=== PATIENT | female | born 1980 | race Caucasian/White ===

== ENCOUNTER 2017-03-03 12:13 | Inpatient (IN) | payer OTHER ==
[2017-03-03 13:22] VITALS: BMI 14.3
--- NOTE | 2017-03-03 13:43 | HP ---
Admission [facility] Chief Complaint: i need help to stay in rehab for heroin dependence,and cocaine dependence,mmtp Allergies/Adverse Reactions: Allergies Allergy/AdvReac Type Severity Reaction Status Date / Time No Known Allergies Allergy Verified 03/03/17 13:27 History of Present Illness: this 36 years old female with heroin and cocaine dependence,mmtp 120 mgs/day for rehab last treatment in 2011 [facility] multiple medical problem hepatitis c,depression,nicotine dependence,weight loss last methadone medicated today depression - Ebola screening Have you traveled outside of the country in the last 21 days: No Have you had contact with anyone from an Ebola affected area: No Have you been sick,other than usual withdrawal symptoms: No Do you have a fever: No - Review of Systems Constitutional: No Symptoms Reported, Loss of Appetite, Malaise, Changes in sleep, Weakness, Unexplained wgt Loss EENT: reports: No Symptoms Reported Respiratory: reports: No Symptoms reported Cardiac: reports: No Symptoms Reported GI: reports: No Symptoms Reported : reports: No Symptoms Reported Musculoskeletal: reports: No Symptoms Reported Integumentary: reports: No Symptoms Reported Neuro: reports: No Symptoms reported Endocrine: reports: No Symptoms Reported Hematology: reports: No Symptoms Reported Psychiatric: reports: Depressed Patient History - Patient Medical History Hx Anemia: No Hx Asthma: No Hx Chronic Obstructive Pulmonary Disease (COPD): No Hx Cancer: No Hx Cardiac Disorders: No Hx Congestive Heart Failure: No Hx Hypertension: No Hx Hypercholesterolemia: No Hx Pacemaker: No HX Cerebrovascular Accident: No Hx Seizures: No Hx Dementia: No Hx Diabetes: No Hx Gastrointestinal Disorders: No Hx Liver Disease: Yes (hepatitis c) Hx Genitourinary Disorders: No Hx Sexually Transmitted Disorders: No Hx Renal Disease (ESRD): No Hx Thyroid Disease: No Hx Human Immunodeficiency Virus (HIV): No (02/28/17 last negative) Hx Hepatitis C: Yes Hx Depression: Yes Hx Suicide Attempt: No Hx Bipolar Disorder: No Hx Schizophrenia: No Other Medical History: no suicidal,no homicidal - Patient Surgical History Past Surgical History: No - PPD History Previous Implant?: Yes Documented Results: Negative w/o proof Implanted On Prior [facility] Admission?: No PPD to be Administered?: Yes - Reproductive History Patient is a Female of Child Bearing Age (11 -55 yrs old): Yes Patient : No - Smoking Cessation Smoking history: Current every day smoker Have you smoked in the past 12 months: Yes Aproximately how many cigarettes per day: 20 Cigars Per Day: 0 Hx Chewing Tobacco Use: No Initiated information on smoking cessation: Yes 'Breaking Loose' booklet given: 03/03/17 - Substance & Tx. History Hx Alcohol Use: No Hx Substance Use: Yes Substance Use Type: Cocaine, Heroin Hx Substance Use Treatment: Yes (2011 [facility]) - Substances Abused Heroin Route: Injection Frequency: Daily Amount used: 2-3 bags Age of first use: 31 Date of Last Use: 03/03/17 Cocaine Route: Injection Frequency: Daily Amount used: 4 bags Age of first use: 31 Date of Last Use: 03/03/17 Family Disease History - Family Disease History Family Disease History: Other: Father (alcohol ), Mother (alcohol ) Admission Physical Exam [facility] - Vital Signs Vital Signs: Vital Signs - 24 hr 03/03/17 13:19 Temperature 96.4 F L Pulse Rate 71 Respiratory 19 Rate Blood Pressure 109/76 - Physical General Appearance: Yes: Within Normal Limits, Other (cachexia) HEENTM: Yes: Hearing grossly Normal, Normal ENT Inspection, ANIYA Respiratory: Yes: Lungs Clear, Normal Breath Sounds, No Respiratory Distress Neck: Yes: Within Normal Limits Breast: Yes: Breast Exam Deferred Cardiology: Yes: Within Normal Limits, Regular Rhythm, Regular Rate, S1, S2 Abdominal: Yes: Within Normal Limits, Normal Bowel Sounds, Non Tender, Flat, Soft Genitourinary: Yes: Within Normal Limits Back: Yes: Within Normal Limits Musculoskeletal: Yes: Within Normal Limits Extremities: Yes: Within Normal Limits Neurological: Yes: mechanical estimator II-XII NML intact, Fully Oriented, Alert, Motor Strength 5/5 Integumentary: Yes: Within Normal Limits Lymphatic: Yes: Within Normal Limits - Diagnostic (1) Opioid dependence Current Visit: Yes Status: Acute (2) Cocaine dependence Current Visit: Yes Status: Acute (3) Methadone maintenance therapy patient Current Visit: Yes Status: Acute (4) Hepatitis C Current Visit: Yes Status: Acute (5) Nicotine dependence Current Visit: Yes Status: Acute (6) Weight loss Current Visit: Yes Status: Acute (7) Depression Current Visit: Yes Status: Acute Cleared for Admission [facility] - Detox or Rehab Claeared for Rehab Admission: Yes [facility] Breath Alcohol Content Breath Alcohol Content: 0 Urine Pregancy Test - Result Urine Test Results: Negative- NO Line Present Urine Drug Screen - Results Drug Screen Negative: No Urine Drug Screen Results: OSMIN-Cocaine, OPI-Opiates, MTD-Methadone
[2017-03-03] MEDS ORDERED: guaiFENesin/D-METHORPHAN HB 10 ML UNIT-DOSE CUPS PO PRN (13:56)
[2017-03-03] MEDS ORDERED: P-EPHED 60MG/TRIPROLIDI 2.5MG TABLET PO PRN (13:56)
[2017-03-03] MEDS ORDERED: MAGNESIUM CITRATE 300 ML BOTTLE PO PRN (13:56)
[2017-03-03] MEDS ORDERED: MAG HYDROX/AL HYDROX/SIMETH 30 ML UNIT-DOSE CUP PO PRN (13:56)
[2017-03-03] MEDS ORDERED: MENTHOL/PHENOL 1 EACH UD MM PRN (13:56)
[2017-03-03] MEDS ORDERED: NICOTINE POLACRILEX 2 MG GUM BUC PRN (13:56)
[2017-03-03] MEDS ORDERED: MAGNESIUM HYDROX 2400MG/30ML ORAL SUSPENSION 30 ML CUP PO PRN (13:56)
[2017-03-03] MEDS ORDERED: ACETAMINOPHEN 325 MG TABLET (FP) PO PRN (13:56)
[2017-03-03] MEDS ORDERED: hydrOXYzine PAMOATE 25 MG CAPSULE (FP) PO PRN (13:56)
[2017-03-03] MEDS ORDERED: IBUPROFEN 400 MG TABLET (FP) PO PRN (13:56)
[2017-03-03 16:56] LABS: MCH 32.1 pg (25.7-33.7); MCHC 33.2 g/dl (32.0-36.0); MEAN CELL VOLUME 96.8 fl (80-96); MEAN PLT VOLUME 10.3 fl (7.5-11.1); PLATELET COUNT 220 K/MM3 (134-434); RDW 14.2 % (11.6-15.6); WHITE BLOOD COUNT 6.3 K/mm3 (4.0-10.0)
[2017-03-03 17:21] LABS: ALBUMIN 3.8 g/dl (3.4-5.0); ANION GAP 7 (8-16); BILIRUBIN,TOTAL 0.3 mg/dL (0.2-1.0); CALCIUM 9.4 mg/dL (8.5-10.1); CO2 31 mmol/L (21-32); CREATININE 0.9 mg/dL (0.55-1.02); SGOT/AST 14 U/L (15-37); SGPT/ALT 37 U/L (12-78); TOT PROT 7.5 g/dl (6.4-8.2)
[2017-03-03 17:22] LABS: ALK PHOS 155 U/L (45-117)
[2017-03-03 17:35] LABS: GLUCOSE,RANDOM 606 mg/dL (74-106)
[2017-03-03] MEDS ORDERED: INSULIN (NOVOLOG) ASPART 100 UNITS/ML 10ML VIAL SQ ONE (18:18)
[2017-03-03] MEDS: NICOTINE 21 MG/24 HOURS TOPICAL PATCH TD SCH (18:42)
[2017-03-03] MEDS: CYPROHEPTADINE HCL 4 MG TABLET PO SCH (18:42)
[2017-03-03] MEDS: LOPERAMIDE HCL 2 MG CAPSULE PO PRN (18:59)
[2017-03-03] MEDS: THIAMINE HCL 100 MG TABLET (FP) PO SCH (21:59)
[2017-03-03] MEDS: INSULIN SLIDING SCALE (NOVOLOG) 1 VIAL SQ SCH (22:00)
[2017-03-03] MEDS: diphenhydrAMINE HCL 50 MG CAPSULE PO PRN (22:00)
[2017-03-03 22:03] LABS: URINE APPEARANCE CLEAR; URINE BILIRUBIN NEGATIVE (NEGATIVE); URINE BLOOD NEGATIVE (NEGATIVE); URINE COLOR STRAW; URINE GLUCOSE (UA) 3+ (NEGATIVE); URINE KETONE NEGATIVE (NEGATIVE); URINE LEUK ESTERASE NEGATIVE (NEGATIVE); URINE NITRITE NEGATIVE (NEGATIVE); URINE PROTEIN NEGATIVE (NEGATIVE); URINE UROBILINOGEN NEGATIVE mg/dL (0.2-1.0)
[2017-03-03] MEDS: INSULIN DETEMIR 100 UNITS/ML MDV SQ SCH (22:04)
[2017-03-04] MEDS: CYPROHEPTADINE HCL 4 MG TABLET PO SCH ×3 (07:00→17:38)
[2017-03-04] MEDS: LOPERAMIDE HCL 2 MG CAPSULE PO PRN ×2 (07:00→17:40)
[2017-03-04] MEDS: INSULIN SLIDING SCALE (NOVOLOG) 1 VIAL SQ SCH ×4 (07:01→21:40)
[2017-03-04] MEDS: METHADONE HCL 40 MG DISPERSABLE TABLET PO SCH (08:02)
[2017-03-04] MEDS: PRENATAL VITAMINS W/ FOLIC ACID TABLET (FP) PO SCH (10:12)
[2017-03-04] MEDS: NICOTINE 21 MG/24 HOURS TOPICAL PATCH TD SCH (10:12)
[2017-03-04] MEDS: THIAMINE HCL 100 MG TABLET (FP) PO SCH (21:38)
[2017-03-04] MEDS: INSULIN DETEMIR 100 UNITS/ML MDV SQ SCH (22:15)
[2017-03-05] MEDS: METHADONE HCL 40 MG DISPERSABLE TABLET PO SCH (06:37)
[2017-03-05] MEDS: CYPROHEPTADINE HCL 4 MG TABLET PO SCH ×3 (06:38→17:22)
[2017-03-05] MEDS: LOPERAMIDE HCL 2 MG CAPSULE PO PRN ×2 (06:39→17:23)
[2017-03-05] MEDS: INSULIN SLIDING SCALE (NOVOLOG) 1 VIAL SQ SCH ×4 (06:40→21:35)
--- NOTE | 2017-03-05 08:09 | EKG ---
Test Reason : Blood Pressure : / mmHG Vent. Rate : 058 BPM Atrial Rate : 058 BPM P-R Int : 136 ms QRS Dur : 090 ms QT Int : 462 ms P-R-T Axes : 053 082 080 degrees QTc Int : 453 ms SINUS BRADYCARDIA WITH SINUS ARRHYTHMIA ANTERIOR INFARCT , AGE UNDETERMINED ABNORMAL ECG NO PREVIOUS ECGS AVAILABLE Confirmed by JULY KELLY MD ([id number]) on 03/05/2017 8:09:23 AM Referred By: Confirmed By:JULY KELLY MD
[2017-03-05] MEDS: NICOTINE 21 MG/24 HOURS TOPICAL PATCH TD SCH (09:59)
[2017-03-05] MEDS: PRENATAL VITAMINS W/ FOLIC ACID TABLET (FP) PO SCH (10:00)
[2017-03-05] MEDS ORDERED: INSULIN (NOVOLOG) ASPART 100 UNITS/ML 10ML VIAL ONE (12:14)
[2017-03-05] MEDS: THIAMINE HCL 100 MG TABLET (FP) PO SCH (21:34)
[2017-03-05] MEDS: INSULIN DETEMIR 100 UNITS/ML MDV SQ SCH (21:36)
[2017-03-06] MEDS: METHADONE HCL 40 MG DISPERSABLE TABLET PO SCH (06:26)
[2017-03-06] MEDS: CYPROHEPTADINE HCL 4 MG TABLET PO SCH ×3 (06:26→17:05)
[2017-03-06] MEDS ORDERED: INSULIN (NOVOLOG) ASPART 100 UNITS/ML 10ML VIAL ONE ×2 (06:29→11:48)
[2017-03-06] MEDS: INSULIN SLIDING SCALE (NOVOLOG) 1 VIAL SQ SCH ×4 (08:02→22:00)
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
[2017-03-06] MEDS: NICOTINE 21 MG/24 HOURS TOPICAL PATCH TD SCH (09:52)
[2017-03-06] MEDS: PRENATAL VITAMINS W/ FOLIC ACID TABLET (FP) PO SCH (09:53)
[2017-03-06] MEDS: INSULIN DETEMIR 100 UNITS/ML MDV SQ SCH (21:59)
[2017-03-06] MEDS: THIAMINE HCL 100 MG TABLET (FP) PO SCH (22:00)
[2017-03-07] MEDS: CYPROHEPTADINE HCL 4 MG TABLET PO SCH ×3 (06:06→17:14)
[2017-03-07] MEDS: METHADONE HCL 40 MG DISPERSABLE TABLET PO SCH (06:07)
[2017-03-07] MEDS: INSULIN SLIDING SCALE (NOVOLOG) 1 VIAL SQ SCH ×4 (07:42→21:42)
[2017-03-07] MEDS ORDERED: INSULIN (NOVOLOG) ASPART 100 UNITS/ML 10ML VIAL ONE ×5 (07:44→21:43)
[2017-03-07] MEDS: NICOTINE 21 MG/24 HOURS TOPICAL PATCH TD SCH (09:53)
[2017-03-07] MEDS: PRENATAL VITAMINS W/ FOLIC ACID TABLET (FP) PO SCH (09:54)
[2017-03-07] MEDS: LOPERAMIDE HCL 2 MG CAPSULE PO PRN (17:17)
[2017-03-07] MEDS: diphenhydrAMINE HCL 50 MG CAPSULE PO PRN (21:38)
[2017-03-07] MEDS: THIAMINE HCL 100 MG TABLET (FP) PO SCH (21:39)
[2017-03-07] MEDS: INSULIN DETEMIR 100 UNITS/ML MDV SQ SCH (21:42)
[2017-03-08] MEDS: CYPROHEPTADINE HCL 4 MG TABLET PO SCH ×3 (06:11→17:13)
[2017-03-08] MEDS: METHADONE HCL 40 MG DISPERSABLE TABLET PO SCH (06:12)
[2017-03-08] MEDS: INSULIN SLIDING SCALE (NOVOLOG) 1 VIAL SQ SCH ×4 (06:15→21:39)
[2017-03-08] MEDS: PRENATAL VITAMINS W/ FOLIC ACID TABLET (FP) PO SCH (10:21)
[2017-03-08] MEDS: NICOTINE 21 MG/24 HOURS TOPICAL PATCH TD SCH (10:21)
[2017-03-08] MEDS ORDERED: INSULIN (NOVOLOG) ASPART 100 UNITS/ML 10ML VIAL ONE (11:49)
[2017-03-08] MEDS: LOPERAMIDE HCL 2 MG CAPSULE PO PRN (17:16)
[2017-03-08] MEDS: INSULIN DETEMIR 100 UNITS/ML MDV SQ SCH (21:38)
[2017-03-08] MEDS: THIAMINE HCL 100 MG TABLET (FP) PO SCH (21:39)
[2017-03-08] MEDS: diphenhydrAMINE HCL 50 MG CAPSULE PO PRN (21:40)
[2017-03-09] MEDS: CYPROHEPTADINE HCL 4 MG TABLET PO SCH ×3 (06:06→17:08)
[2017-03-09] MEDS: METHADONE HCL 40 MG DISPERSABLE TABLET PO SCH (06:06)
[2017-03-09] MEDS: INSULIN SLIDING SCALE (NOVOLOG) 1 VIAL SQ SCH ×4 (07:20→21:35)
[2017-03-09] MEDS: NICOTINE 21 MG/24 HOURS TOPICAL PATCH TD SCH (10:26)
[2017-03-09] MEDS: PRENATAL VITAMINS W/ FOLIC ACID TABLET (FP) PO SCH (10:26)
[2017-03-09] MEDS ORDERED: INSULIN (NOVOLOG) ASPART 100 UNITS/ML 10ML VIAL ONE (11:57)
[2017-03-09] MEDS: THIAMINE HCL 100 MG TABLET (FP) PO SCH (21:35)
[2017-03-09] MEDS: INSULIN DETEMIR 100 UNITS/ML MDV SQ SCH (21:35)
[2017-03-10] MEDS: METHADONE HCL 40 MG DISPERSABLE TABLET PO SCH (06:05)
[2017-03-10] MEDS: CYPROHEPTADINE HCL 4 MG TABLET PO SCH ×3 (06:05→17:16)
[2017-03-10] MEDS ORDERED: INSULIN (NOVOLOG) ASPART 100 UNITS/ML 10ML VIAL ONE ×2 (06:56→11:49)
[2017-03-10] MEDS: INSULIN SLIDING SCALE (NOVOLOG) 1 VIAL SQ SCH ×4 (07:57→21:44)
[2017-03-10] MEDS: NICOTINE 21 MG/24 HOURS TOPICAL PATCH TD SCH (10:30)
[2017-03-10] MEDS: PRENATAL VITAMINS W/ FOLIC ACID TABLET (FP) PO SCH (10:30)
--- NOTE | 2017-03-10 14:54 | PN ---
Psychiatric Progress Note Vital Signs: Vital Signs Period Temp Pulse Resp BP Sys/Jeronimo Pulse Ox Last 24 Hr 98.4 F 111 17-18 126/79 Date of Session: 03/10/17 Chief Complaint:: Sleep is the big problems still as well as mood instability. HPI: Patient addressed Opioid dependence (MMTP maintanance),Cocoaine dependence comorbid with substance induced mood disorder. ROS: IDDM,hep C. Current Medications: Active Medications Generic Name Dose Route Start Last Admin Trade Name Freq PRN Reason Stop Dose Admin Acetaminophen 650 mg 03/03/17 13:56 Tylenol - PO Q4H PRN PAIN Al Hydroxide/Mg Hydroxide 30 ml 03/03/17 13:56 Mylanta Oral Suspension - PO Q6H PRN DYSPEPSIA Cyproheptadine HCl 4 mg 03/03/17 16:30 03/10/17 10:31 Periactin - PO 4 mg TIDAC MARVIN Administration Diphenhydramine HCl 50 mg 03/03/17 13:56 03/08/17 21:40 Benadryl - PO 50 mg HSMR1 PRN Administration INSOMNIA Eucalyptus/Menthol/Phenol/Sorbitol 1 each 03/03/17 13:56 Cepastat Lozenge - MM Q4H PRN SORE THROAT Guaifenesin 10 ml 03/03/17 13:56 Robitussin Dm - PO Q6H PRN COUGH Hydroxyzine Pamoate 25 mg 03/03/17 13:56 Vistaril - PO Q4H PRN AGITATION Ibuprofen 400 mg 03/03/17 13:56 Motrin - PO Q6H PRN SEVERE PAIN Insulin Aspart 1 vial 03/03/17 22:00 03/10/17 11:46 Novolog Vial Sliding Scale - SQ 10 unit ACHS MARVIN Administration Protocol Insulin Detemir 20 units 03/10/17 14:37 Levemir Vial SQ HS MARVIN Loperamide HCl 4 mg 03/03/17 13:56 03/08/17 17:16 Imodium - PO 4 mg Q6H PRN Administration DIARRHEA Magnesium Citrate 300 ml 03/03/17 13:56 Citroma - PO Q48H PRN CONSTIPATION Magnesium Hydroxide 30 ml 03/03/17 13:56 Milk Of Magnesia - PO DAILY PRN CONSTIPATION Methadone HCl 120 mg 03/11/17 06:00 Dolophine - PO 03/17/17 05:59 DAILY@0600 MARVIN Nicotine 21 mg 03/03/17 14:36 03/10/17 10:30 Nicoderm Patch - TD 21 mg DAILY MARVIN Administration Nicotine Polacrilex 2 mg 03/03/17 13:56 Nicorette Gum - BUC Q2H PRN NICOTINE REPLACEMENT RX Multivit/Folic Acid/Iron 1 tab 03/04/17 10:00 03/10/17 10:30 Vitamins ([facility]) - PO 1 tab DAILY MARVIN Administration Pseudoephedrine/Triprolidine 1 combo 03/03/17 13:56 Actifed - PO TID PRN NASAL CONGESTION Quetiapine Fumarate 50 mg 03/10/17 22:00 Seroquel - PO HS MARVIN Thiamine HCl 100 mg 03/03/17 22:00 03/09/17 21:35 Vitamin B1 - PO Not Given HS MARVIN Current Side Effect: No Lab tests ordered: No Lab tests reviewed: Yes Provider note:: Chart was revuewed ,patient was seen in my office to address her ongoing sleeping difficulties(inability to fallasleep and interrupted sleep pattern).Properties of seroquel has been discussed with the patient including side effects,benefits and dose adjustment).Seroquel 50 mg po hs will be started tonight. Supportive therapy provided along with psychoeducation. Total face to face time:: 25 Mental Status Exam - Mental Status Exam Alert and Oriented to: Time, Place, Person Cognitive Function: Grossly Intact Patient Appearance: Well Groomed Mood: Anxious Affect: Mood Congruent, Labile Patient Behavior: Cooperative Speech Pattern: Clear Voice Loudness: Normal Thought Process: Goal Oriented Thought Disorder: Not Present Hallucinations: Denies Suicidal Ideation: Denies Homicidal Ideation: Denies Insight/Judgement: Fair Sleep: Difficulty falling asleep Appetite: Fair Muscle strength/Tone: Normal Gait/Station: Normal Psychiatric Treatment Plan - Problem List (1) Cocaine dependence Current Visit: Yes (2) Hepatitis C Current Visit: Yes (3) IDDM (insulin dependent diabetes mellitus) Current Visit: Yes (4) Methadone maintenance therapy patient Current Visit: Yes (5) Nicotine dependence Current Visit: Yes (6) Opioid dependence Current Visit: Yes
[2017-03-10] MEDS: THIAMINE HCL 100 MG TABLET (FP) PO SCH (21:43)
[2017-03-10] MEDS: INSULIN DETEMIR 100 UNITS/ML MDV SQ SCH (21:46)
[2017-03-10] MEDS: QUEtiapine FUMARATE 50 MG TABLET PO SCH (21:47)
[2017-03-11] MEDS: CYPROHEPTADINE HCL 4 MG TABLET PO SCH ×3 (06:16→16:27)
[2017-03-11] MEDS: INSULIN SLIDING SCALE (NOVOLOG) 1 VIAL SQ SCH ×4 (06:16→21:34)
[2017-03-11] MEDS: METHADONE HCL 40 MG DISPERSABLE TABLET PO SCH (06:17)
[2017-03-11] MEDS: NICOTINE 21 MG/24 HOURS TOPICAL PATCH TD SCH (09:37)
[2017-03-11] MEDS: PRENATAL VITAMINS W/ FOLIC ACID TABLET (FP) PO SCH (09:37)
[2017-03-11] MEDS ORDERED: INSULIN (NOVOLOG) ASPART 100 UNITS/ML 10ML VIAL ONE ×3 (11:47→21:36)
[2017-03-11] MEDS: INSULIN DETEMIR 100 UNITS/ML MDV SQ SCH (21:32)
[2017-03-11] MEDS: QUEtiapine FUMARATE 50 MG TABLET PO SCH (21:33)
[2017-03-11] MEDS: THIAMINE HCL 100 MG TABLET (FP) PO SCH (21:33)
[2017-03-12] MEDS: CYPROHEPTADINE HCL 4 MG TABLET PO SCH ×3 (06:25→16:56)
[2017-03-12] MEDS: METHADONE HCL 40 MG DISPERSABLE TABLET PO SCH (06:25)
[2017-03-12] MEDS: INSULIN SLIDING SCALE (NOVOLOG) 1 VIAL SQ SCH ×4 (06:26→23:13)
[2017-03-12] MEDS: PRENATAL VITAMINS W/ FOLIC ACID TABLET (FP) PO SCH (09:02)
[2017-03-12] MEDS: NICOTINE 21 MG/24 HOURS TOPICAL PATCH TD SCH (09:02)
[2017-03-12] MEDS ORDERED: PT OWN MED DRAWER 7, Y5N ONE (09:55)
[2017-03-12] MEDS ORDERED: INSULIN (NOVOLOG) ASPART 100 UNITS/ML 10ML VIAL ONE ×3 (12:02→22:09)
[2017-03-12] MEDS: THIAMINE HCL 100 MG TABLET (FP) PO SCH (21:43)
[2017-03-12] MEDS: QUEtiapine FUMARATE 50 MG TABLET PO SCH (21:44)
[2017-03-12] MEDS: LOPERAMIDE HCL 2 MG CAPSULE PO PRN (23:12)
[2017-03-12] MEDS: INSULIN DETEMIR 100 UNITS/ML MDV SQ SCH (23:13)
[2017-03-13] MEDS: METHADONE HCL 40 MG DISPERSABLE TABLET PO SCH (06:20)
[2017-03-13] MEDS: CYPROHEPTADINE HCL 4 MG TABLET PO SCH ×3 (06:21→17:25)
[2017-03-13] MEDS: INSULIN SLIDING SCALE (NOVOLOG) 1 VIAL SQ SCH ×4 (06:37→21:44)
[2017-03-13] MEDS: DIPHENOXYLATE 2.5/ATROPINE.025 1 COMBO TABLET PO PRN (07:55)
[2017-03-13] MEDS: PRENATAL VITAMINS W/ FOLIC ACID TABLET (FP) PO SCH (10:28)
[2017-03-13] MEDS: NICOTINE 21 MG/24 HOURS TOPICAL PATCH TD SCH (10:29)
[2017-03-13] MEDS ORDERED: INSULIN (NOVOLOG) ASPART 100 UNITS/ML 10ML VIAL ONE (11:55)
[2017-03-13] MEDS ORDERED: QUEtiapine FUMARATE 25 MG TABLET (FP) ONE (19:48)
[2017-03-13] MEDS: INSULIN DETEMIR 100 UNITS/ML MDV SQ SCH (21:44)
[2017-03-13] MEDS: THIAMINE HCL 100 MG TABLET (FP) PO SCH (21:46)
[2017-03-13] MEDS: QUEtiapine FUMARATE 50 MG TABLET PO SCH (21:46)
[2017-03-14] MEDS: DIPHENOXYLATE 2.5/ATROPINE.025 1 COMBO TABLET PO PRN (06:19)
[2017-03-14] MEDS: METHADONE HCL 40 MG DISPERSABLE TABLET PO SCH (06:19)
[2017-03-14] MEDS: CYPROHEPTADINE HCL 4 MG TABLET PO SCH ×3 (06:19→17:20)
[2017-03-14] MEDS: INSULIN SLIDING SCALE (NOVOLOG) 1 VIAL SQ SCH ×4 (08:09→21:50)
[2017-03-14] MEDS ORDERED: INSULIN (NOVOLOG) ASPART 100 UNITS/ML 10ML VIAL ONE ×2 (08:11→11:57)
[2017-03-14] MEDS: NICOTINE 21 MG/24 HOURS TOPICAL PATCH TD SCH (10:19)
[2017-03-14] MEDS: PRENATAL VITAMINS W/ FOLIC ACID TABLET (FP) PO SCH (10:19)
[2017-03-14] MEDS ORDERED: PT OWN MED DRAWER 7, Y5N ONE (11:57)
[2017-03-14] MEDS: QUEtiapine FUMARATE 50 MG TABLET PO SCH (21:47)
[2017-03-14] MEDS: THIAMINE HCL 100 MG TABLET (FP) PO SCH (21:47)
[2017-03-14] MEDS ORDERED: INSULIN DETEMIR 100 UNITS/ML MDV SQ SCH (22:00)
[2017-03-15] MEDS: METHADONE HCL 40 MG DISPERSABLE TABLET PO SCH (06:09)
[2017-03-15] MEDS: INSULIN SLIDING SCALE (NOVOLOG) 1 VIAL SQ SCH ×4 (06:10→21:47)
[2017-03-15] MEDS: CYPROHEPTADINE HCL 4 MG TABLET PO SCH ×3 (06:10→17:18)
[2017-03-15] MEDS: INSULIN DETEMIR 100 UNITS/ML MDV SQ SCH ×2 (07:15→17:19)
[2017-03-15] MEDS: NICOTINE 21 MG/24 HOURS TOPICAL PATCH TD SCH (10:06)
[2017-03-15] MEDS: PRENATAL VITAMINS W/ FOLIC ACID TABLET (FP) PO SCH (10:07)
[2017-03-15] MEDS: DIPHENOXYLATE 2.5/ATROPINE.025 1 COMBO TABLET PO PRN ×2 (10:07→17:21)
[2017-03-15] MEDS ORDERED: PT OWN MED DRAWER 7, Y5N ONE (10:27)
[2017-03-15] MEDS ORDERED: INSULIN (NOVOLOG) ASPART 100 UNITS/ML 10ML VIAL ONE (11:50)
[2017-03-15] MEDS: QUEtiapine FUMARATE 50 MG TABLET PO SCH (21:46)
[2017-03-15] MEDS: THIAMINE HCL 100 MG TABLET (FP) PO SCH (21:46)
[2017-03-16] MEDS: CYPROHEPTADINE HCL 4 MG TABLET PO SCH ×3 (06:06→17:19)
[2017-03-16] MEDS: METHADONE HCL 40 MG DISPERSABLE TABLET PO SCH (06:06)
[2017-03-16] MEDS: INSULIN SLIDING SCALE (NOVOLOG) 1 VIAL SQ SCH ×4 (06:07→21:45)
[2017-03-16] MEDS: INSULIN DETEMIR 100 UNITS/ML MDV SQ SCH ×2 (07:22→17:18)
[2017-03-16] MEDS: NICOTINE 21 MG/24 HOURS TOPICAL PATCH TD SCH (09:56)
[2017-03-16] MEDS: PRENATAL VITAMINS W/ FOLIC ACID TABLET (FP) PO SCH (09:56)
[2017-03-16] MEDS ORDERED: INSULIN (NOVOLOG) ASPART 100 UNITS/ML 10ML VIAL ONE ×2 (10:16→11:50)
[2017-03-16] MEDS ORDERED: PT OWN MED DRAWER 7, Y5N ONE (10:17)
[2017-03-16] MEDS ORDERED: LOPERAMIDE HCL 1 MG/5 ML UNIT DOSE CUP PO ONE (19:12)
[2017-03-16] MEDS ORDERED: LOPERAMIDE HCL 2 MG CAPSULE PO ONE (19:15)
[2017-03-16] MEDS: THIAMINE HCL 100 MG TABLET (FP) PO SCH (21:46)
[2017-03-16] MEDS: QUEtiapine FUMARATE 50 MG TABLET PO SCH (21:46)
[2017-03-17] MEDS: METHADONE HCL 40 MG DISPERSABLE TABLET PO SCH (06:04)
[2017-03-17] MEDS: CYPROHEPTADINE HCL 4 MG TABLET PO SCH ×3 (07:50→16:47)
[2017-03-17] MEDS: INSULIN SLIDING SCALE (NOVOLOG) 1 VIAL SQ SCH ×4 (07:52→22:28)
[2017-03-17] MEDS: INSULIN DETEMIR 100 UNITS/ML MDV SQ SCH ×2 (07:52→17:30)
[2017-03-17] MEDS ORDERED: INSULIN (NOVOLOG) ASPART 100 UNITS/ML 10ML VIAL ONE ×2 (07:54→17:45)
[2017-03-17] MEDS ORDERED: PT OWN MED DRAWER 7, Y5N ONE ×2 (07:55→10:28)
[2017-03-17] MEDS: NICOTINE 21 MG/24 HOURS TOPICAL PATCH TD SCH (10:11)
[2017-03-17] MEDS: PRENATAL VITAMINS W/ FOLIC ACID TABLET (FP) PO SCH (10:12)
[2017-03-17] MEDS: DIPHENOXYLATE 2.5/ATROPINE.025 1 COMBO TABLET PO PRN ×2 (16:48→22:00)
[2017-03-17] MEDS ORDERED: INSULIN DETEMIR 100 UNITS/ML MDV SQ ONE (17:45)
[2017-03-17] MEDS: QUEtiapine FUMARATE 50 MG TABLET PO SCH (21:59)
[2017-03-17] MEDS: THIAMINE HCL 100 MG TABLET (FP) PO SCH (21:59)
[2017-03-18] MEDS ORDERED: INSULIN DETEMIR 100 UNITS/ML MDV SQ ONE (05:50)
[2017-03-18] MEDS: CYPROHEPTADINE HCL 4 MG TABLET PO SCH ×3 (06:10→17:18)
[2017-03-18] MEDS: METHADONE HCL 40 MG DISPERSABLE TABLET PO SCH (06:10)
[2017-03-18] MEDS: INSULIN SLIDING SCALE (NOVOLOG) 1 VIAL SQ SCH ×4 (06:45→21:49)
[2017-03-18] MEDS: INSULIN DETEMIR 100 UNITS/ML MDV SQ SCH ×2 (07:59→17:16)
[2017-03-18] MEDS: PRENATAL VITAMINS W/ FOLIC ACID TABLET (FP) PO SCH (10:06)
[2017-03-18] MEDS: NICOTINE 21 MG/24 HOURS TOPICAL PATCH TD SCH (10:06)
[2017-03-18] MEDS: DIPHENOXYLATE 2.5/ATROPINE.025 1 COMBO TABLET PO PRN ×2 (10:08→17:20)
[2017-03-18] MEDS ORDERED: INSULIN (NOVOLOG) ASPART 100 UNITS/ML 10ML VIAL ONE (11:47)
[2017-03-18] MEDS: QUEtiapine FUMARATE 50 MG TABLET PO SCH (21:50)
[2017-03-18] MEDS: THIAMINE HCL 100 MG TABLET (FP) PO SCH (21:50)
[2017-03-19] MEDS ORDERED: INSULIN DETEMIR 100 UNITS/ML MDV SQ ONE (05:51)
[2017-03-19] MEDS: METHADONE HCL 40 MG DISPERSABLE TABLET PO SCH (06:12)
[2017-03-19] MEDS: CYPROHEPTADINE HCL 4 MG TABLET PO SCH ×3 (06:12→16:53)
[2017-03-19] MEDS: INSULIN SLIDING SCALE (NOVOLOG) 1 VIAL SQ SCH ×4 (06:57→22:06)
[2017-03-19] MEDS: INSULIN DETEMIR 100 UNITS/ML MDV SQ SCH ×2 (08:04→16:52)
[2017-03-19] MEDS: PRENATAL VITAMINS W/ FOLIC ACID TABLET (FP) PO SCH (10:07)
[2017-03-19] MEDS: NICOTINE 21 MG/24 HOURS TOPICAL PATCH TD SCH (10:07)
[2017-03-19] MEDS: DIPHENOXYLATE 2.5/ATROPINE.025 1 COMBO TABLET PO PRN (12:20)
[2017-03-19] MEDS ORDERED: INSULIN (NOVOLOG) ASPART 100 UNITS/ML 10ML VIAL ONE (12:24)
[2017-03-19] MEDS: THIAMINE HCL 100 MG TABLET (FP) PO SCH (22:05)
[2017-03-19] MEDS: QUEtiapine FUMARATE 50 MG TABLET PO SCH (22:05)
[2017-03-20] MEDS: METHADONE HCL 40 MG DISPERSABLE TABLET PO SCH (06:13)
[2017-03-20] MEDS: INSULIN SLIDING SCALE (NOVOLOG) 1 VIAL SQ SCH (06:14)
[2017-03-20] MEDS: CYPROHEPTADINE HCL 4 MG TABLET PO SCH (06:14)
[2017-03-20 07:05] VITALS: BP 105/73; PULSE 92; TEMP 98.3
[2017-03-20] MEDS: INSULIN DETEMIR 100 UNITS/ML MDV SQ SCH (08:35)
--- NOTE | 2017-03-20 09:27 | PN ---
Psychiatric Progress Note Vital Signs: Vital Signs Period Temp Pulse Resp BP Sys/Jeronimo Pulse Ox Last 24 Hr 98.3 F 92 16-18 105/73 Date of Session: 03/20/17 Chief Complaint:: Discharge visit HPI: Patient addressed Opioid and Cocaine dependence comorbid with Substance induced mood disorder. ROS: Significant for Hep,DM. Current Medications: Active Medications Generic Name Dose Route Start Last Admin Trade Name Freq PRN Reason Stop Dose Admin Acetaminophen 650 mg 03/03/17 13:56 Tylenol - PO Q4H PRN PAIN Al Hydroxide/Mg Hydroxide 30 ml 03/03/17 13:56 Mylanta Oral Suspension - PO Q6H PRN DYSPEPSIA Cyproheptadine HCl 4 mg 03/03/17 16:30 03/20/17 06:14 Periactin - PO 4 mg TIDAC MARVIN Administration Diphenhydramine HCl 50 mg 03/03/17 13:56 03/08/17 21:40 Benadryl - PO 50 mg HSMR1 PRN Administration INSOMNIA Diphenoxylate HCl/Atropine 1 combo 03/17/17 15:32 03/19/17 12:20 Lomotil - PO 03/20/17 15:31 1 combo Q4H PRN Administration DIARRHEA Eucalyptus/Menthol/Phenol/Sorbitol 1 each 03/03/17 13:56 Cepastat Lozenge - MM Q4H PRN SORE THROAT Guaifenesin 10 ml 03/03/17 13:56 Robitussin Dm - PO Q6H PRN COUGH Hydroxyzine Pamoate 25 mg 03/03/17 13:56 03/11/17 16:27 Vistaril - PO 25 mg Q4H PRN Administration AGITATION Ibuprofen 400 mg 03/03/17 13:56 Motrin - PO Q6H PRN SEVERE PAIN Insulin Aspart 1 vial 03/03/17 22:00 03/20/17 06:14 Novolog Vial Sliding Scale - SQ Not Given [facility] Protocol Insulin Detemir 20 units 03/15/17 00:58 03/20/17 08:35 Levemir Vial SQ 20 units BIDI MARVIN Administration Magnesium Citrate 300 ml 03/03/17 13:56 Citroma - PO Q48H PRN CONSTIPATION Magnesium Hydroxide 30 ml 03/03/17 13:56 Milk Of Magnesia - PO DAILY PRN CONSTIPATION Methadone HCl 120 mg 03/17/17 06:00 03/20/17 06:13 Dolophine - PO 120 mg DAILY@0600 MARVIN Administration Nicotine 21 mg 03/03/17 14:36 03/19/17 10:07 Nicoderm Patch - TD 21 mg DAILY MARVIN Administration Nicotine Polacrilex 2 mg 03/03/17 13:56 Nicorette Gum - BUC Q2H PRN NICOTINE REPLACEMENT RX Multivit/Folic Acid/Iron 1 tab 03/04/17 10:00 03/19/17 10:07 Vitamins ([facility]) - PO 1 tab DAILY MARVIN Administration Pseudoephedrine/Triprolidine 1 combo 03/03/17 13:56 Actifed - PO TID PRN NASAL CONGESTION Quetiapine Fumarate 50 mg 03/10/17 22:00 03/19/17 22:05 Seroquel - PO 50 mg HS MARVIN Administration Thiamine HCl 100 mg 03/03/17 22:00 03/19/17 22:05 Vitamin B1 - PO 100 mg HS MARVIN Administration Current Side Effect: No Lab tests ordered: No Lab tests reviewed: Yes Provider note:: Patient completed this program today.She has met her treatment goals and will continur to address [facility] [place].Patient reports finding Seroquel 50 mg po hs her cope with stressors and will be provided with scripts for 30 days. Discussed properties,indications for these and importance of taking as prescribed and sceduling aftercare appointments. Patient is stable for dischrge today. Total face to face time:: 25 Mental Status Exam - Mental Status Exam Alert and Oriented to: Time, Place, Person Cognitive Function: Grossly Intact Patient Appearance: Well Groomed Affect: Normal Range Patient Behavior: Cooperative Speech Pattern: Clear Voice Loudness: Normal Thought Disorder: Not Present Hallucinations: Denies Suicidal Ideation: Denies Homicidal Ideation: Denies Insight/Judgement: Fair Sleep: Fair Appetite: Fair Muscle strength/Tone: Normal Gait/Station: Normal
[2017-03-20] MEDS: PRENATAL VITAMINS W/ FOLIC ACID TABLET (FP) PO SCH (10:23)
[2017-03-20] MEDS: NICOTINE 21 MG/24 HOURS TOPICAL PATCH TD SCH (10:23)
== END 2017-03-20 10:20 | disposition home or self-care (01) | DRG 772 ==
LOC: YASAS 12:13 → Y3E 13:43
PROVIDERS: ADMIT Psychiatry & Neurology Psychiatry; ATTEND Psychiatry & Neurology Psychiatry
PROC: HZ42ZZZ Group Counseling for Substance Abuse Treatment, Cognitive-Behavioral (ICD-10-PCS; principal; 2017-03-03)
DX: F11.20 Opioid dependence, uncomplicated (principal); F14.20 Cocaine dependence, uncomplicated; F17.210 Nicotine dependence, cigarettes, uncomplicated; F19.24 Other psychoactive substance dependence with psychoactive substance-induced mood disorder; F32.9 Major depressive disorder, single episode, unspecified; E11.9 Type 2 diabetes mellitus without complications; B18.2 Chronic viral hepatitis C; Z79.4 Long term (current) use of insulin; Z87.898 Personal history of other specified conditions
CPT/HCPCS: 36415; 80053; 81003; 85027; 86593; 87324; 87449; 93005; 93010

== ENCOUNTER 2017-09-08 12:24 | Inpatient (IN) | payer OTHER ==
[2017-09-08 16:00] VITALS: BMI 14.4
--- NOTE | 2017-09-08 16:52 | HP ---
Admission ROS [facility] Chief Complaint: SEEKING DETOX SERVICES Allergies/Adverse Reactions: Allergies Allergy/AdvReac Type Severity Reaction Status Date / Time No Known Allergies Allergy Verified 09/08/17 16:44 History of Present Illness: 37 Y.O. WOMAN WITH A HISTORY OF HEROIN DEPENDENCE IS HERE SEEKING REHAB SERVICES. SHE STATES SHE IS AT [facility] AND LDM TODAY AT 130MG OF METHADONE. LAST HERE FOR REHAB IN 02/2017 AND STATES HER LONGEST PERIOD CLEAN HAS BEEN 2 YEARS. Exam Limitations: No Limitations - Ebola screening Have you traveled outside of the country in the last 21 days: No (N) Have you had contact with anyone from an Ebola affected area: No Have you been sick,other than usual withdrawal symptoms: No Do you have a fever: No - Review of Systems Constitutional: Unexplained wgt Loss EENT: reports: Blurred Vision Respiratory: reports: No Symptoms reported Cardiac: reports: No Symptoms Reported GI: reports: Diarrhea, Abdominal cramping : reports: No Symptoms Reported Musculoskeletal: reports: Back Pain Integumentary: reports: No Symptoms Reported Neuro: reports: Numbness (NUMBNESS TO LOWER EXTREMITY.) Endocrine: reports: No Symptoms Reported Hematology: reports: Anemia Psychiatric: reports: Judgement Intact, Mood/Affect Appropiate, Orientated x3 Other Systems: Reviewed and Negative Patient History - Patient Medical History Hx Anemia: Yes (SUSPECTED) Hx Asthma: No Hx Chronic Obstructive Pulmonary Disease (COPD): No Hx Cancer: No Hx Cardiac Disorders: No Hx Congestive Heart Failure: No Hx Hypertension: No Hx Hypercholesterolemia: No Hx Pacemaker: No HX Cerebrovascular Accident: No Hx Seizures: No Hx Dementia: No Hx Diabetes: Yes (DMII ) Hx Gastrointestinal Disorders: Yes (chronic diarrhea x 3 mos) Hx Liver Disease: Yes (Hepatitis c (untreated)) Hx Genitourinary Disorders: No Hx Sexually Transmitted Disorders: No Hx Renal Disease (ESRD): No Hx Thyroid Disease: No Hx Human Immunodeficiency Virus (HIV): No (02/28/17 last negative) Hx Hepatitis C: Yes Hx Depression: Yes (no psych tx) Hx Suicide Attempt: No Hx Bipolar Disorder: No Hx Schizophrenia: No - Patient Surgical History Past Surgical History: No - PPD History Previous Implant?: Yes Documented Results: Negative w/o proof PPD to be Administered?: Yes - Reproductive History Patient is a Female of Child Bearing Age (11 -55 yrs old): Yes Last Menstrual Period: 09/08/13 Patient : No - Smoking Cessation Smoking history: Current every day smoker Have you smoked in the past 12 months: Yes Aproximately how many cigarettes per day: 10 Cigars Per Day: 0 Hx Chewing Tobacco Use: No Initiated information on smoking cessation: Yes 'Breaking Loose' booklet given: 09/08/17 - Substance & Tx. History Hx Alcohol Use: No Hx Substance Use: Yes Substance Use Type: Heroin Hx Substance Use Treatment: Yes (REHAB: 02/2017) - Substances Abused Heroin Route: Injection Frequency: 3-6 times per week Amount used: 5 BAGS Age of first use: 31 Date of Last Use: 09/08/17 Family Disease History - Family Disease History Family Disease History: Other: Father (alcohol ), Mother (alcohol ) Admission Physical Exam [facility] - Vital Signs Vital Signs: Vital Signs - 24 hr 09/08/17 15:57 Temperature 97.7 F Pulse Rate 89 Respiratory 18 Rate Blood Pressure 110/73 - Physical General Appearance: Yes: Thin, Anxious HEENTM: Yes: Hearing grossly Normal, Normal ENT Inspection, Normocephalic Respiratory: Yes: Chest Non-Tender, Lungs Clear, Normal Breath Sounds, No Respiratory Distress, No Accessory Muscle Use Neck: Yes: No masses,lesions,Nodules, Trachea in good position Breast: Yes: Breast Exam Deferred Cardiology: Yes: Regular Rhythm, Regular Rate Abdominal: Yes: Normal Bowel Sounds, Non Tender Genitourinary: Yes: Other (NO COMPLAINTS REPORTED) Back: Yes: Normal Inspection Musculoskeletal: Yes: Back pain Extremities: Yes: Normal Capillary Refill, Normal Inspection, Normal Range of Motion, Non-Tender Neurological: Yes: Alert, Normal Mood/Affect, Normal Response Integumentary: Yes: Normal Color, Dry, Warm, Track [place] Lymphatic: Yes: Within Normal Limits - Diagnostic (1) Opioid dependence on agonist therapy Current Visit: Yes Status: Chronic (2) Underweight Current Visit: Yes Status: Acute (3) Weight loss Current Visit: Yes Status: Acute (4) Hepatitis C Current Visit: No Status: Chronic (5) IDDM (insulin dependent diabetes mellitus) Current Visit: No Status: Chronic (6) Nicotine dependence Current Visit: Yes Status: Chronic Cleared for Admission [facility] - Detox or Rehab [facility] Level of Care: Observation Bed Claeared for Rehab Admission: Yes [facility] Breath Alcohol Content Breath Alcohol Content: 0 Urine Pregancy Test - Result Urine Test Results: Negative- NO Line Present Urine Drug Screen - Results Drug Screen Negative: No Urine Drug Screen Results: OPI-Opiates, MTD-Methadone Inpatient Rehab Admission - Initial Determination Are CD services needed?: Yes Free of communicable disease: Yes Not in need of hospitalization: Yes - Rehab Admission Criteria Previous failed treatment: Yes Poor recovery environment: Yes Comorbidities: Yes Lacks judgement: Yes Patient is meeting Inpatient Rehab admission criteria:: Yes
[2017-09-08] MEDS ORDERED: MENTHOL/PHENOL 1 EACH UD MM PRN (17:14)
[2017-09-08] MEDS ORDERED: guaiFENesin/D-METHORPHAN HB 10 ML UNIT-DOSE CUPS PO PRN (17:14)
[2017-09-08] MEDS ORDERED: MAG HYDROX/AL HYDROX/SIMETH 30 ML UNIT-DOSE CUP PO PRN (17:14)
[2017-09-08] MEDS ORDERED: hydrOXYzine PAMOATE 50 MG CAPSULE (FP) PO PRN (17:14)
[2017-09-08] MEDS ORDERED: ACETAMINOPHEN 325 MG TABLET (FP) PO PRN (17:14)
[2017-09-08] MEDS ORDERED: P-EPHED 60MG/TRIPROLIDI 2.5MG TABLET PO PRN (17:14)
[2017-09-08] MEDS ORDERED: MAGNESIUM CITRATE 300 ML BOTTLE PO PRN (17:14)
[2017-09-08] MEDS ORDERED: MAGNESIUM HYDROX 2400MG/30ML ORAL SUSPENSION 30 ML CUP PO PRN (17:14)
[2017-09-08] MEDS ORDERED: NICOTINE POLACRILEX 2 MG GUM BC PRN (17:14)
[2017-09-08] MEDS ORDERED: IBUPROFEN 400 MG TABLET (FP) PO PRN (17:14)
[2017-09-08] MEDS ORDERED: INSULIN (NOVOLOG) ASPART 100 UNITS/ML 10ML VIAL SQ ONE (18:45)
[2017-09-08] MEDS ORDERED: TUBERCULIN PPD 5 TU/0.1ML VIAL ID ONE (19:37)
[2017-09-08] MEDS ORDERED: INSULIN (NOVOLOG) ASPART 100 UNITS/ML 10ML VIAL ONE ×2 (19:38→22:34)
--- NOTE | 2017-09-08 21:30 | PN ---
[facility] Progress Note Note: Psychiatry Attending's on-call note : Called to enter order for seroquel. New admission from [facility]. 37 y/o female.Already known to [facility]. Records revisited. Previously admitted on 03/10/17. Was managed with seroquel 50 mg/hs. Current issue : insomnia. Patient requests that seroquel be included in current regimen. Past history of good response. No history of adverse effects. Seroquel 50 mg po hs.Ordered. Spoke to patient via telephone : last took that medication on 09/07/17. Patient gets refills from her primary care physician. Reminded of side effects/benefits. Patient agrees with careplan.
[2017-09-08] MEDS: THIAMINE HCL 100 MG TABLET (FP) PO SCH (21:59)
[2017-09-08] MEDS: INSULIN DETEMIR 100 UNITS/ML MDV SQ SCH (22:00)
[2017-09-08] MEDS ORDERED: QUEtiapine FUMARATE 50 MG TABLET PO ONE (22:05)
[2017-09-08 22:31] LABS: URINE APPEARANCE CLEAR; URINE BILIRUBIN NEGATIVE (NEGATIVE); URINE BLOOD NEGATIVE (NEGATIVE); URINE GLUCOSE (UA) 3+ (NEGATIVE); URINE KETONE NEGATIVE (NEGATIVE); URINE NITRITE NEGATIVE (NEGATIVE); URINE PROTEIN NEGATIVE (NEGATIVE); URINE UROBILINOGEN NEGATIVE mg/dL (0.2-1.0)
[2017-09-08] MEDS ORDERED: INSULIN DETEMIR 100 UNITS/ML MDV SQ ONE (22:34)
[2017-09-08 22:37] LABS: URINE LEUK ESTERASE 2+ (NEGATIVE)
[2017-09-08 22:38] LABS: URINE COLOR STRAW
[2017-09-08 22:51] LABS: CALCIUM OXALATE CRYSTALS RARE /hpf (NONE SEEN); EPI CELLS RARE /HPF (FEW); URINE BACTERIA RARE /hpf (NONE SEEN)
[2017-09-09] MEDS: INSULIN SLIDING SCALE (NOVOLOG) 1 VIAL SQ SCH ×3 (06:45→16:48)
[2017-09-09] MEDS ORDERED: METHADONE HCL 10 MG TABLET PO SCH (07:30)
[2017-09-09] MEDS ORDERED: METHADONE HCL 40 MG DISPERSABLE TABLET ONE (08:11)
[2017-09-09] MEDS ORDERED: METHADONE HCL 10 MG TABLET ONE (08:11)
[2017-09-09] MEDS: METHADONE 120 MG, METHADONE 10 MG PO SCH (08:12)
[2017-09-09] MEDS: PRENATAL VITAMINS W/ FOLIC ACID TABLET (FP) PO SCH (09:46)
[2017-09-09] MEDS: NICOTINE 14 MG/24 HOURS TOPICAL PATCH TD SCH (09:46)
[2017-09-09 10:24] LABS: HEMATOCRIT 41.6 % (32.4-45.2); HEMOGLOBIN 13.7 GM/dL (10.7-15.3); MCH 31.2 pg (25.7-33.7); MCHC 32.8 g/dl (32.0-36.0); MEAN CELL VOLUME 94.9 fl (80-96); MEAN PLT VOLUME 8.8 fl (7.5-11.1); PLATELET COUNT 277 K/MM3 (134-434); RBC 4.38 M/mm3 (3.60-5.2); RDW 14.5 % (11.6-15.6); WHITE BLOOD COUNT 7.2 K/mm3 (4.0-10.0)
[2017-09-09] MEDS: LOPERAMIDE HCL 2 MG CAPSULE PO PRN ×2 (10:26→21:22)
[2017-09-09 10:33] LABS: ALBUMIN 3.5 g/dl (3.4-5.0); ANION GAP 6 (8-16); BILIRUBIN,TOTAL 0.3 mg/dL (0.2-1.0); BLOOD UREA NITROGEN 14 mg/dL (7-18); CALCIUM 8.8 mg/dL (8.5-10.1); CHLORIDE 96 mmol/L (98-107); CO2 31 mmol/L (21-32); CREATININE 0.6 mg/dL (0.55-1.02); POTASSIUM 3.9 mmol/L (3.5-5.1); SGOT/AST 25 U/L (15-37); SGPT/ALT 48 U/L (12-78); SODIUM 133 mmol/L (136-145); TOT PROT 7.7 g/dl (6.4-8.2)
[2017-09-09 10:36] LABS: ALK PHOS 133 U/L (45-117)
[2017-09-09] MEDS ORDERED: INSULIN (NOVOLOG) ASPART 100 UNITS/ML 10ML VIAL ONE ×2 (11:46→16:49)
[2017-09-09 12:23] LABS: GLUCOSE,RANDOM 332 mg/dL (74-106)
--- NOTE | 2017-09-09 15:58 | EKG ---
Test Reason : Blood Pressure : / mmHG Vent. Rate : 090 BPM Atrial Rate : 090 BPM P-R Int : 132 ms QRS Dur : 080 ms QT Int : 344 ms P-R-T Axes : 073 079 084 degrees QTc Int : 420 ms NORMAL SINUS RHYTHM NONSPECIFIC T WAVE ABNORMALITY ABNORMAL ECG WHEN COMPARED WITH ECG OF 03-MAR-2017 22:51, VENT. RATE HAS INCREASED BY 32 BPM T WAVE INVERSION NO LONGER EVIDENT IN ANTERIOR LEADS Confirmed by JULY KELYL MD ([id number]) on 09/09/2017 3:58:11 PM Referred By: Confirmed By:JULY KELLY MD
[2017-09-09] MEDS: THIAMINE HCL 100 MG TABLET (FP) PO SCH (21:20)
[2017-09-09] MEDS: INSULIN DETEMIR 100 UNITS/ML MDV SQ SCH (21:20)
[2017-09-09] MEDS: QUEtiapine FUMARATE 50 MG TABLET PO SCH (21:22)
[2017-09-10] MEDS ORDERED: METHADONE HCL 40 MG DISPERSABLE TABLET ONE (02:52)
[2017-09-10] MEDS ORDERED: METHADONE HCL 10 MG TABLET ONE (02:52)
[2017-09-10] MEDS: METHADONE 120 MG, METHADONE 10 MG PO SCH (06:21)
[2017-09-10] MEDS: INSULIN SLIDING SCALE (NOVOLOG) 1 VIAL SQ SCH ×4 (06:24→16:55)
[2017-09-10] MEDS ORDERED: INSULIN (NOVOLOG) ASPART 100 UNITS/ML 10ML VIAL ONE ×3 (06:25→17:55)
[2017-09-10] MEDS: PRENATAL VITAMINS W/ FOLIC ACID TABLET (FP) PO SCH (09:33)
[2017-09-10] MEDS: NICOTINE 14 MG/24 HOURS TOPICAL PATCH TD SCH (09:33)
[2017-09-10] MEDS: LOPERAMIDE HCL 2 MG CAPSULE PO PRN (09:34)
[2017-09-10 19:03] LABS: URINE APPEARANCE SLCLOUDY; URINE BILIRUBIN NEGATIVE (NEGATIVE); URINE BLOOD 3+ (NEGATIVE); URINE COLOR YELLOW; URINE GLUCOSE (UA) 3+ (NEGATIVE); URINE KETONE NEGATIVE (NEGATIVE); URINE LEUK ESTERASE NEGATIVE (NEGATIVE); URINE NITRITE NEGATIVE (NEGATIVE); URINE UROBILINOGEN NEGATIVE mg/dL (0.2-1.0)
[2017-09-10 19:05] LABS: URINE PROTEIN 1+ (NEGATIVE)
[2017-09-10 19:12] LABS: CALCIUM OXALATE CRYSTALS FEW /hpf (NONE SEEN); EPI CELLS RARE /HPF (FEW)
[2017-09-10] MEDS: QUEtiapine FUMARATE 50 MG TABLET PO SCH (21:45)
[2017-09-10] MEDS: THIAMINE HCL 100 MG TABLET (FP) PO SCH (21:45)
[2017-09-10] MEDS: DIPHENOXYLATE 2.5/ATROPINE.025 1 COMBO TABLET PO PRN (21:45)
[2017-09-10] MEDS: INSULIN DETEMIR 100 UNITS/ML MDV SQ SCH (21:46)
[2017-09-11] MEDS ORDERED: METHADONE HCL 10 MG TABLET ONE (02:59)
[2017-09-11] MEDS ORDERED: METHADONE HCL 40 MG DISPERSABLE TABLET ONE (03:00)
[2017-09-11] MEDS: METHADONE 120 MG, METHADONE 10 MG PO SCH (06:39)
[2017-09-11] MEDS: INSULIN SLIDING SCALE (NOVOLOG) 1 VIAL SQ SCH ×3 (06:40→17:14)
[2017-09-11] MEDS: INSULIN DETEMIR 100 UNITS/ML MDV SQ SCH ×2 (07:49→21:28)
[2017-09-11] MEDS: PRENATAL VITAMINS W/ FOLIC ACID TABLET (FP) PO SCH (10:09)
[2017-09-11] MEDS: NICOTINE 14 MG/24 HOURS TOPICAL PATCH TD SCH (10:09)
[2017-09-11] MEDS ORDERED: INSULIN (NOVOLOG) ASPART 100 UNITS/ML 10ML VIAL ONE ×3 (11:53→22:39)
--- NOTE | 2017-09-11 13:34 | HP ---
Psychiatrist Admission - Data Date of interview: 09/11/17 Admission source: [facility] Identifying data: This is the second admission to [address] [place] [address] for this 37 years old mother of 3 (children reside with the patient's aunt).patient is undomiciled,supported by PA. Medical History: Significant for DM,Hep C. Psychiatric History: Denies previous psychiatric history,reports taking Seroquel 50 mg po hs on and off from her Family Dr to manage sleeping difficulties. Physical/Sexual Abuse/Trauma History: denies Vital Signs: Vital Signs - 24 hr 09/11/17 09/11/17 09/11/17 00:30 03:30 07:20 Temperature 98.2 F Pulse Rate 98 H Respiratory 16 16 18 Rate Blood Pressure 115/82 Allergies/Adverse Reactions: Allergies Allergy/AdvReac Type Severity Reaction Status Date / Time No Known Allergies Allergy Verified 09/08/17 16:44 Date of last physical exam: 09/08/17 Concur with the findings of this exam: Yes - Substance Abuse/Tx History Hx Alcohol Use: No Hx Substance Use: Yes (heroin since 32 yo(IV),MMTP 130 mg ) Substance Use Type: Opiates Hx Substance Use Treatment: Yes (completed this program in Feb 2017) Mental Status Exam - Mental Status Exam Alert and Oriented to: Time, Place, Person Cognitive Function: Grossly Intact Patient Appearance: Unkempt Mood: Sad Affect: Mood Congruent Patient Behavior: Cooperative Speech Pattern: Clear Voice Loudness: Normal Thought Process: Goal Oriented Thought Disorder: Paranoid Ideation Hallucinations: Denies Suicidal Ideation: Denies Homicidal Ideation: Denies Insight/Judgement: Fair Sleep: Fair Appetite: Good, Weight loss Muscle strength/Tone: Normal Gait/Station: Normal (Patient lost a lot of weight recently.) Psychiatric Findings - Problem List ([place] 1, 2,3) (1) Cocaine dependence Current Visit: Yes Status: Chronic (2) IDDM (insulin dependent diabetes mellitus) Current Visit: Yes Status: Chronic (3) Nicotine dependence Current Visit: Yes Status: Chronic (4) Opioid dependence on agonist therapy Current Visit: Yes Status: Chronic (5) Substance induced mood disorder Current Visit: Yes Status: Chronic - Initial Treatment Plan Initial Treatment Plan: SEroquel 50 mg po hs.Will monitor progress.
--- NOTE | 2017-09-11 13:50 | PN ---
S Progress Note (SOAP) Subjective: Laceration on the left index finger. Frequent urination and darkening urine, "alex color." Objective: 09/11/17 13:45 General: no malaise, fatigue Chest: no cough/sputum/SOB/chest pain. Heart : no CP/heaviness/palpitations/leg pain with exercise/edema. GI: no constipation/diarrhea/blood in stool/melena. : no dysuria or incontinence. Darkening urine and frequency Skin: no pruritus, + for laceration on left index finger 09/11/17 13:52 Assessment: 09/11/17 13:50 GENERAL APPEARANCE: alert and cooperative, and appears to be in no acute distress. CARDIAC: Normal S1 and S2. No S3, S4 or murmurs. Rhythm is regular. There is no peripheral edema, cyanosis or pallor. Extremities are warm and well perfused. Capillary refill is less than 2 seconds. No carotid bruits. LUNGS: Clear to auscultation and percussion without rales, rhonchi, wheezing or diminished breath sounds. ABDOMEN: Positive bowel sounds. Soft, nondistended, nontender. No guarding or rebound. No masses. SKIN: Skin normal color, texture and turgor with no lesions or eruptions. 09/11/17 13:52 Plan: Elevated blood sugar. Patient to start Metformin 500mg BID. Increase fluids. Laceration on the index finger: Top Bacitracin Urinary Symptoms: Patient empirically treated with Bactrim x 3 days . Repeat U/ A after abx completion. Continue to monitor
[2017-09-11] MEDS: metFORMIN HCL 500 MG TABLET (FP) PO SCH (17:14)
[2017-09-11] MEDS: QUEtiapine FUMARATE 50 MG TABLET PO SCH (21:24)
[2017-09-11] MEDS: THIAMINE HCL 100 MG TABLET (FP) PO SCH (21:25)
[2017-09-11] MEDS: SULFAMETHOXAZOLE/TRIMETHOPRIM 800MG/160MG D.S. TABLET PO SCH (21:26)
[2017-09-11] MEDS: BACITRACIN 0.9 GM PACKET TP SCH (21:26)
[2017-09-11] MEDS: DIPHENOXYLATE 2.5/ATROPINE.025 1 COMBO TABLET PO PRN (21:29)
[2017-09-11] MEDS ORDERED: INSULIN DETEMIR 100 UNITS/ML MDV SQ ONE (22:39)
[2017-09-12] MEDS ORDERED: METHADONE HCL 40 MG DISPERSABLE TABLET ONE (03:33)
[2017-09-12] MEDS ORDERED: METHADONE HCL 10 MG TABLET ONE (03:33)
[2017-09-12] MEDS: METHADONE 120 MG, METHADONE 10 MG PO SCH (06:36)
[2017-09-12] MEDS: INSULIN DETEMIR 100 UNITS/ML MDV SQ SCH ×2 (06:55→21:37)
[2017-09-12] MEDS: INSULIN SLIDING SCALE (NOVOLOG) 1 VIAL SQ SCH ×3 (06:55→17:20)
[2017-09-12] MEDS: metFORMIN HCL 500 MG TABLET (FP) PO SCH ×2 (06:55→17:22)
[2017-09-12] MEDS: BACITRACIN 0.9 GM PACKET TP SCH ×2 (09:55→21:35)
[2017-09-12] MEDS: SULFAMETHOXAZOLE/TRIMETHOPRIM 800MG/160MG D.S. TABLET PO SCH ×2 (09:56→21:35)
[2017-09-12] MEDS: NICOTINE 14 MG/24 HOURS TOPICAL PATCH TD SCH (09:56)
[2017-09-12] MEDS: PRENATAL VITAMINS W/ FOLIC ACID TABLET (FP) PO SCH (09:56)
[2017-09-12] MEDS ORDERED: INSULIN (NOVOLOG) ASPART 100 UNITS/ML 10ML VIAL ONE ×3 (12:03→23:25)
[2017-09-12] MEDS: DIPHENOXYLATE 2.5/ATROPINE.025 1 COMBO TABLET PO PRN (12:04)
[2017-09-12] MEDS ORDERED: INSULIN DETEMIR 100 UNITS/ML MDV SQ ONE ×2 (17:17→23:25)
[2017-09-12] MEDS: QUEtiapine FUMARATE 50 MG TABLET PO SCH (21:35)
[2017-09-12] MEDS: THIAMINE HCL 100 MG TABLET (FP) PO SCH (21:35)
[2017-09-13] MEDS ORDERED: METHADONE HCL 10 MG TABLET ONE (02:48)
[2017-09-13] MEDS ORDERED: METHADONE HCL 40 MG DISPERSABLE TABLET ONE (02:48)
[2017-09-13] MEDS: METHADONE 120 MG, METHADONE 10 MG PO SCH (06:37)
[2017-09-13] MEDS: INSULIN SLIDING SCALE (NOVOLOG) 1 VIAL SQ SCH ×3 (06:38→17:21)
[2017-09-13] MEDS: INSULIN DETEMIR 100 UNITS/ML MDV SQ SCH ×2 (06:38→21:28)
[2017-09-13] MEDS: metFORMIN HCL 500 MG TABLET (FP) PO SCH ×2 (08:12→17:21)
[2017-09-13] MEDS: NICOTINE 14 MG/24 HOURS TOPICAL PATCH TD SCH (10:03)
[2017-09-13] MEDS: PRENATAL VITAMINS W/ FOLIC ACID TABLET (FP) PO SCH (10:03)
[2017-09-13] MEDS: SULFAMETHOXAZOLE/TRIMETHOPRIM 800MG/160MG D.S. TABLET PO SCH ×2 (10:03→21:27)
[2017-09-13] MEDS: BACITRACIN 0.9 GM PACKET TP SCH ×2 (10:03→21:27)
[2017-09-13] MEDS ORDERED: INSULIN (NOVOLOG) ASPART 100 UNITS/ML 10ML VIAL ONE ×3 (12:04→22:38)
[2017-09-13] MEDS: DIPHENOXYLATE 2.5/ATROPINE.025 1 COMBO TABLET PO PRN (12:07)
[2017-09-13] MEDS: QUEtiapine FUMARATE 50 MG TABLET PO SCH (21:27)
[2017-09-13] MEDS: THIAMINE HCL 100 MG TABLET (FP) PO SCH (21:27)
[2017-09-14] MEDS ORDERED: METHADONE HCL 40 MG DISPERSABLE TABLET ONE (03:04)
[2017-09-14] MEDS ORDERED: METHADONE HCL 10 MG TABLET ONE (03:04)
[2017-09-14] MEDS: METHADONE 120 MG, METHADONE 10 MG PO SCH (06:43)
[2017-09-14] MEDS: metFORMIN HCL 500 MG TABLET (FP) PO SCH ×2 (06:43→16:44)
[2017-09-14] MEDS ORDERED: INSULIN (NOVOLOG) ASPART 100 UNITS/ML 10ML VIAL ONE ×3 (07:11→23:41)
[2017-09-14] MEDS: INSULIN DETEMIR 100 UNITS/ML MDV SQ SCH ×2 (07:26→21:23)
[2017-09-14] MEDS: INSULIN SLIDING SCALE (NOVOLOG) 1 VIAL SQ SCH ×3 (07:28→16:46)
[2017-09-14] MEDS: NICOTINE 14 MG/24 HOURS TOPICAL PATCH TD SCH (09:51)
[2017-09-14] MEDS: SULFAMETHOXAZOLE/TRIMETHOPRIM 800MG/160MG D.S. TABLET PO SCH ×2 (09:51→21:20)
[2017-09-14] MEDS: PRENATAL VITAMINS W/ FOLIC ACID TABLET (FP) PO SCH (09:51)
[2017-09-14] MEDS: BACITRACIN 0.9 GM PACKET TP SCH ×2 (09:51→21:20)
[2017-09-14] MEDS: DIPHENOXYLATE 2.5/ATROPINE.025 1 COMBO TABLET PO PRN ×2 (09:52→21:21)
[2017-09-14] MEDS: QUEtiapine FUMARATE 50 MG TABLET PO SCH (21:20)
[2017-09-14] MEDS: THIAMINE HCL 100 MG TABLET (FP) PO SCH (21:20)
[2017-09-15] MEDS ORDERED: METHADONE HCL 10 MG TABLET ONE (03:18)
[2017-09-15] MEDS ORDERED: METHADONE HCL 40 MG DISPERSABLE TABLET ONE (03:19)
[2017-09-15] MEDS: METHADONE 120 MG, METHADONE 10 MG PO SCH (06:30)
[2017-09-15] MEDS: metFORMIN HCL 500 MG TABLET (FP) PO SCH ×2 (06:31→17:19)
[2017-09-15] MEDS ORDERED: INSULIN (NOVOLOG) ASPART 100 UNITS/ML 10ML VIAL ONE ×3 (06:33→17:18)
[2017-09-15] MEDS ORDERED: INSULIN DETEMIR 100 UNITS/ML MDV SQ ONE (06:33)
[2017-09-15] MEDS: INSULIN SLIDING SCALE (NOVOLOG) 1 VIAL SQ SCH ×3 (06:34→17:20)
[2017-09-15] MEDS: INSULIN DETEMIR 100 UNITS/ML MDV SQ SCH ×2 (06:34→21:33)
[2017-09-15] MEDS: BACITRACIN 0.9 GM PACKET TP SCH ×2 (10:29→21:33)
[2017-09-15] MEDS: SULFAMETHOXAZOLE/TRIMETHOPRIM 800MG/160MG D.S. TABLET PO SCH (10:29)
[2017-09-15] MEDS: PRENATAL VITAMINS W/ FOLIC ACID TABLET (FP) PO SCH (10:29)
[2017-09-15] MEDS: NICOTINE 14 MG/24 HOURS TOPICAL PATCH TD SCH (10:29)
[2017-09-15] MEDS: DIPHENOXYLATE 2.5/ATROPINE.025 1 COMBO TABLET PO PRN ×2 (11:57→23:17)
--- NOTE | 2017-09-15 15:01 | PN ---
[facility] Progress Note (SOAP) Subjective: c/o left knee and thigh swelling x 4 dasy with pain Objective: 09/15/17 15:00 Vital Signs - 24 hr 09/15/17 07:10 Temperature 98.3 F Pulse Rate 102 H Respiratory 18 Rate Blood Pressure 109/74 Laboratory Tests 09/08/17 09/08/17 09/08/17 17:04 20:16 22:00 WBC RBC Hgb Hct MCV MCH MCHC RDW Plt Count MPV Sodium Potassium Chloride Carbon Dioxide Anion Gap BUN Creatinine Creat Clearance w eGFR POC Glucometer > 600 279 Random Glucose Calcium Total Bilirubin AST ALT Alkaline Phosphatase Total Protein Albumin Urine Color Straw Urine Appearance Clear Urine pH 6.0 Ur Specific [place] 1.038 H Urine Protein Negative Urine Glucose (UA) 3+ H Urine Ketones Negative Urine Blood Negative Urine Nitrite Negative Urine Bilirubin Negative Urine Urobilinogen Negative Ur Leukocyte Esterase 2+ H Urine WBC (Auto) 3 Urine RBC (Auto) 3 Ur Epithelial Cells Rare Calcium Oxalate Crystal Rare Urine Bacteria Rare RPR Titer 09/09/17 09/09/17 09/09/17 06:43 09:30 09:30 WBC 7.2 RBC 4.38 Hgb 13.7 Hct 41.6 MCV 94.9 MCH 31.2 MCHC 32.8 RDW 14.5 Plt Count 277 D MPV 8.8 D Sodium 133 L Potassium 3.9 Chloride 96 L Carbon Dioxide 31 Anion Gap 6 L BUN 14 Creatinine 0.6 Creat Clearance w eGFR > 60 POC Glucometer 84 Random Glucose 332 H* Calcium 8.8 Total Bilirubin 0.3 AST 25 ALT 48 Alkaline Phosphatase 133 H Total Protein 7.7 Albumin 3.5 Urine Color Urine Appearance Urine pH Ur Specific [place] Urine Protein Urine Glucose (UA) Urine Ketones Urine Blood Urine Nitrite Urine Bilirubin Urine Urobilinogen Ur Leukocyte Esterase Urine WBC (Auto) Urine RBC (Auto) Ur Epithelial Cells Calcium Oxalate Crystal Urine Bacteria RPR Titer 09/09/17 09/09/17 09/09/17 09:30 11:44 16:46 WBC RBC Hgb Hct MCV MCH MCHC RDW Plt Count MPV Sodium Potassium Chloride Carbon Dioxide Anion Gap BUN Creatinine Creat Clearance w eGFR POC Glucometer 417 369 Random Glucose Calcium Total Bilirubin AST ALT Alkaline Phosphatase Total Protein Albumin Urine Color Urine Appearance Urine pH Ur Specific [place] Urine Protein Urine Glucose (UA) Urine Ketones Urine Blood Urine Nitrite Urine Bilirubin Urine Urobilinogen Ur Leukocyte Esterase Urine WBC (Auto) Urine RBC (Auto) Ur Epithelial Cells Calcium Oxalate Crystal Urine Bacteria RPR Titer Nonreactive 09/09/17 09/10/17 09/10/17 21:17 06:21 12:00 WBC RBC Hgb Hct MCV MCH MCHC RDW Plt Count MPV Sodium Potassium Chloride Carbon Dioxide Anion Gap BUN Creatinine Creat Clearance w eGFR POC Glucometer 516 317 545 Random Glucose Calcium Total Bilirubin AST ALT Alkaline Phosphatase Total Protein Albumin Urine Color Urine Appearance Urine pH Ur Specific [place] Urine Protein Urine Glucose (UA) Urine Ketones Urine Blood Urine Nitrite Urine Bilirubin Urine Urobilinogen Ur Leukocyte Esterase Urine WBC (Auto) Urine RBC (Auto) Ur Epithelial Cells Calcium Oxalate Crystal Urine Bacteria RPR Titer 09/10/17 09/10/17 09/10/17 14:39 16:54 21:45 WBC RBC Hgb Hct MCV MCH MCHC RDW Plt Count MPV Sodium Potassium Chloride Carbon Dioxide Anion Gap BUN Creatinine Creat Clearance w eGFR POC Glucometer 387 432 Random Glucose Calcium Total Bilirubin AST ALT Alkaline Phosphatase Total Protein Albumin Urine Color Yellow Urine Appearance Slcloudy Urine pH 6.0 Ur Specific [place] 1.026 Urine Protein 1+ H Urine Glucose (UA) 3+ H Urine Ketones Negative Urine Blood 3+ H Urine Nitrite Negative Urine Bilirubin Negative Urine Urobilinogen Negative Ur Leukocyte Esterase Negative Urine WBC (Auto) 66 Urine RBC (Auto) 306 Ur Epithelial Cells Rare Calcium Oxalate Crystal Few Urine Bacteria RPR Titer 09/11/17 09/11/17 09/11/17 06:38 11:50 17:14 WBC RBC Hgb Hct MCV MCH MCHC RDW Plt Count MPV Sodium Potassium Chloride Carbon Dioxide Anion Gap BUN Creatinine Creat Clearance w eGFR POC Glucometer 85 451 301 Random Glucose Calcium Total Bilirubin AST ALT Alkaline Phosphatase Total Protein Albumin Urine Color Urine Appearance Urine pH Ur Specific [place] Urine Protein Urine Glucose (UA) Urine Ketones Urine Blood Urine Nitrite Urine Bilirubin Urine Urobilinogen Ur Leukocyte Esterase Urine WBC (Auto) Urine RBC (Auto) Ur Epithelial Cells Calcium Oxalate Crystal Urine Bacteria RPR Titer 09/11/17 09/12/17 09/12/17 21:28 06:35 12:01 WBC RBC Hgb Hct MCV MCH MCHC RDW Plt Count MPV Sodium Potassium Chloride Carbon Dioxide Anion Gap BUN Creatinine Creat Clearance w eGFR POC Glucometer 335 87 340 Random Glucose Calcium Total Bilirubin AST ALT Alkaline Phosphatase Total Protein Albumin Urine Color Urine Appearance Urine pH Ur Specific [place] Urine Protein Urine Glucose (UA) Urine Ketones Urine Blood Urine Nitrite Urine Bilirubin Urine Urobilinogen Ur Leukocyte Esterase Urine WBC (Auto) Urine RBC (Auto) Ur Epithelial Cells Calcium Oxalate Crystal Urine Bacteria RPR Titer 09/12/17 09/12/17 09/13/17 17:20 21:39 06:37 WBC RBC Hgb Hct MCV MCH MCHC RDW Plt Count MPV Sodium Potassium Chloride Carbon Dioxide Anion Gap BUN Creatinine Creat Clearance w eGFR POC Glucometer 335 257 66 Random Glucose Calcium Total Bilirubin AST ALT Alkaline Phosphatase Total Protein Albumin Urine Color Urine Appearance Urine pH Ur Specific [place] Urine Protein Urine Glucose (UA) Urine Ketones Urine Blood Urine Nitrite Urine Bilirubin Urine Urobilinogen Ur Leukocyte Esterase Urine WBC (Auto) Urine RBC (Auto) Ur Epithelial Cells Calcium Oxalate Crystal Urine Bacteria RPR Titer 09/13/17 09/13/17 09/13/17 12:02 17:21 21:27 WBC RBC Hgb Hct MCV MCH MCHC RDW Plt Count MPV Sodium Potassium Chloride Carbon Dioxide Anion Gap BUN Creatinine Creat Clearance w eGFR POC Glucometer 390 397 138 Random Glucose Calcium Total Bilirubin AST ALT Alkaline Phosphatase Total Protein Albumin Urine Color Urine Appearance Urine pH Ur Specific [place] Urine Protein Urine Glucose (UA) Urine Ketones Urine Blood Urine Nitrite Urine Bilirubin Urine Urobilinogen Ur Leukocyte Esterase Urine WBC (Auto) Urine RBC (Auto) Ur Epithelial Cells Calcium Oxalate Crystal Urine Bacteria RPR Titer 09/14/17 09/14/17 09/14/17 06:42 11:20 16:42 WBC RBC Hgb Hct MCV MCH MCHC RDW Plt Count MPV Sodium Potassium Chloride Carbon Dioxide Anion Gap BUN Creatinine Creat Clearance w eGFR POC Glucometer 327 134 461 Random Glucose Calcium Total Bilirubin AST ALT Alkaline Phosphatase Total Protein Albumin Urine Color Urine Appearance Urine pH Ur Specific [place] Urine Protein Urine Glucose (UA) Urine Ketones Urine Blood Urine Nitrite Urine Bilirubin Urine Urobilinogen Ur Leukocyte Esterase Urine WBC (Auto) Urine RBC (Auto) Ur Epithelial Cells Calcium Oxalate Crystal Urine Bacteria RPR Titer 09/14/17 09/15/17 09/15/17 21:23 00:15 06:10 WBC RBC Hgb Hct MCV MCH MCHC RDW Plt Count MPV Sodium Potassium Chloride Carbon Dioxide Anion Gap BUN Creatinine Creat Clearance w eGFR POC Glucometer 191 287 343 Random Glucose Calcium Total Bilirubin AST ALT Alkaline Phosphatase Total Protein Albumin Urine Color Urine Appearance Urine pH Ur Specific [place] Urine Protein Urine Glucose (UA) Urine Ketones Urine Blood Urine Nitrite Urine Bilirubin Urine Urobilinogen Ur Leukocyte Esterase Urine WBC (Auto) Urine RBC (Auto) Ur Epithelial Cells Calcium Oxalate Crystal Urine Bacteria RPR Titer 09/15/17 11:53 WBC RBC Hgb Hct MCV MCH MCHC RDW Plt Count MPV Sodium Potassium Chloride Carbon Dioxide Anion Gap BUN Creatinine Creat Clearance w eGFR POC Glucometer 186 Random Glucose Calcium Total Bilirubin AST ALT Alkaline Phosphatase Total Protein Albumin Urine Color Urine Appearance Urine pH Ur Specific [place] Urine Protein Urine Glucose (UA) Urine Ketones Urine Blood Urine Nitrite Urine Bilirubin Urine Urobilinogen Ur Leukocyte Esterase Urine WBC (Auto) Urine RBC (Auto) Ur Epithelial Cells Calcium Oxalate Crystal Urine Bacteria RPR Titer reythema and swelling left knee and iner thigh skin, hot to touch and painful Assessment: 09/15/17 15:00 left thigh cellulitis - will start antibiotics, pain medications
[2017-09-15] MEDS: PANTOPRAZOLE 40 MG TABLET (FP) PO SCH (15:33)
[2017-09-15] MEDS: CEPHALEXIN MONOHYDRATE 500 MG CAPSULE (UD) PO SCH ×2 (17:19→23:16)
[2017-09-15] MEDS: THIAMINE HCL 100 MG TABLET (FP) PO SCH (21:33)
[2017-09-15] MEDS: NAPROXEN 500 MG TABLET (FP) PO SCH (21:33)
[2017-09-15] MEDS: QUEtiapine FUMARATE 50 MG TABLET PO SCH (21:33)
[2017-09-16] MEDS ORDERED: METHADONE HCL 10 MG TABLET ONE (05:41)
[2017-09-16] MEDS ORDERED: METHADONE HCL 40 MG DISPERSABLE TABLET ONE (05:42)
[2017-09-16] MEDS: METHADONE 120 MG, METHADONE 10 MG PO SCH (06:40)
[2017-09-16] MEDS: CEPHALEXIN MONOHYDRATE 500 MG CAPSULE (UD) PO SCH ×3 (06:41→17:21)
[2017-09-16] MEDS: metFORMIN HCL 500 MG TABLET (FP) PO SCH ×2 (06:42→17:16)
[2017-09-16] MEDS: INSULIN DETEMIR 100 UNITS/ML MDV SQ SCH ×2 (06:43→21:30)
[2017-09-16] MEDS: INSULIN SLIDING SCALE (NOVOLOG) 1 VIAL SQ SCH ×3 (07:22→17:17)
[2017-09-16] MEDS ORDERED: PT OWN MED DRAWER 7, Y5N ONE (07:25)
[2017-09-16] MEDS: NICOTINE 14 MG/24 HOURS TOPICAL PATCH TD SCH (10:04)
[2017-09-16] MEDS: BACITRACIN 0.9 GM PACKET TP SCH ×2 (10:04→21:28)
[2017-09-16] MEDS: PRENATAL VITAMINS W/ FOLIC ACID TABLET (FP) PO SCH (10:05)
[2017-09-16] MEDS: PANTOPRAZOLE 40 MG TABLET (FP) PO SCH (10:05)
[2017-09-16] MEDS: NAPROXEN 500 MG TABLET (FP) PO SCH ×2 (10:05→21:29)
[2017-09-16] MEDS: DIPHENOXYLATE 2.5/ATROPINE.025 1 COMBO TABLET PO PRN (10:07)
[2017-09-16] MEDS ORDERED: INSULIN (NOVOLOG) ASPART 100 UNITS/ML 10ML VIAL ONE ×3 (11:56→23:31)
[2017-09-16] MEDS: THIAMINE HCL 100 MG TABLET (FP) PO SCH (21:29)
[2017-09-16] MEDS: QUEtiapine FUMARATE 50 MG TABLET PO SCH (21:29)
[2017-09-17] MEDS: CEPHALEXIN MONOHYDRATE 500 MG CAPSULE (UD) PO SCH ×4 (04:28→17:07)
[2017-09-17] MEDS ORDERED: METHADONE HCL 40 MG DISPERSABLE TABLET ONE (05:21)
[2017-09-17] MEDS ORDERED: METHADONE HCL 10 MG TABLET ONE (05:21)
[2017-09-17] MEDS: METHADONE 120 MG, METHADONE 10 MG PO SCH (06:25)
[2017-09-17] MEDS: metFORMIN HCL 500 MG TABLET (FP) PO SCH ×2 (07:44→17:07)
[2017-09-17] MEDS: INSULIN SLIDING SCALE (NOVOLOG) 1 VIAL SQ SCH ×3 (07:48→17:08)
[2017-09-17] MEDS: INSULIN DETEMIR 100 UNITS/ML MDV SQ SCH ×2 (07:48→21:31)
[2017-09-17] MEDS ORDERED: INSULIN (NOVOLOG) ASPART 100 UNITS/ML 10ML VIAL ONE ×4 (07:49→23:23)
[2017-09-17] MEDS: NAPROXEN 500 MG TABLET (FP) PO SCH ×2 (10:05→21:28)
[2017-09-17] MEDS: PANTOPRAZOLE 40 MG TABLET (FP) PO SCH (10:05)
[2017-09-17] MEDS: BACITRACIN 0.9 GM PACKET TP SCH ×2 (10:05→21:28)
[2017-09-17] MEDS: PRENATAL VITAMINS W/ FOLIC ACID TABLET (FP) PO SCH (10:05)
[2017-09-17] MEDS: NICOTINE 14 MG/24 HOURS TOPICAL PATCH TD SCH (10:05)
[2017-09-17] MEDS: DIPHENOXYLATE 2.5/ATROPINE.025 1 COMBO TABLET PO PRN (15:08)
[2017-09-17] MEDS: THIAMINE HCL 100 MG TABLET (FP) PO SCH (21:28)
[2017-09-17] MEDS: QUEtiapine FUMARATE 50 MG TABLET PO SCH (21:28)
[2017-09-17] MEDS ORDERED: INSULIN DETEMIR 100 UNITS/ML MDV SQ ONE (23:23)
[2017-09-18] MEDS: CEPHALEXIN MONOHYDRATE 500 MG CAPSULE (UD) PO SCH ×3 (00:15→11:56)
[2017-09-18] MEDS ORDERED: METHADONE HCL 10 MG TABLET ONE (05:51)
[2017-09-18] MEDS ORDERED: METHADONE HCL 40 MG DISPERSABLE TABLET ONE (05:51)
[2017-09-18] MEDS: METHADONE 120 MG, METHADONE 10 MG PO SCH (06:25)
[2017-09-18] MEDS: metFORMIN HCL 500 MG TABLET (FP) PO SCH ×2 (06:26→17:09)
[2017-09-18] MEDS: INSULIN DETEMIR 100 UNITS/ML MDV SQ SCH ×2 (06:27→21:31)
[2017-09-18] MEDS: INSULIN SLIDING SCALE (NOVOLOG) 1 VIAL SQ SCH ×3 (07:02→17:09)
[2017-09-18] MEDS ORDERED: BISMUTH SUBSALICYLATE 262 MG/15 ML BTL PO PRN (07:33)
[2017-09-18] MEDS: PANTOPRAZOLE 40 MG TABLET (FP) PO SCH (09:54)
[2017-09-18] MEDS: BACITRACIN 0.9 GM PACKET TP SCH ×2 (09:54→21:30)
[2017-09-18] MEDS: NAPROXEN 500 MG TABLET (FP) PO SCH (09:54)
[2017-09-18] MEDS: PRENATAL VITAMINS W/ FOLIC ACID TABLET (FP) PO SCH (09:54)
[2017-09-18] MEDS: NICOTINE 14 MG/24 HOURS TOPICAL PATCH TD SCH (09:54)
[2017-09-18] MEDS ORDERED: INSULIN (NOVOLOG) ASPART 100 UNITS/ML 10ML VIAL ONE ×3 (11:56→23:02)
[2017-09-18] MEDS ORDERED: INDOMETHACIN 50 MG CAPSULE PO ONE (11:59)
--- NOTE | 2017-09-18 12:05 | PN ---
S Progress Note (SOAP) Subjective: c/o increasing pain and swelling left knee, no imporvment with change of antibiotics from bactrim to keflesxa and naprosyn for pain Objective: 09/18/17 12:03 Vital Signs - 24 hr 09/18/17 09/18/17 09/18/17 00:30 03:30 06:49 Temperature 98.0 F Pulse Rate 98 H Respiratory 17 18 18 Rate Blood Pressure 109/73 Laboratory Tests 09/08/17 09/08/17 09/08/17 17:04 20:16 22:00 WBC RBC Hgb Hct MCV MCH MCHC RDW Plt Count MPV Sodium Potassium Chloride Carbon Dioxide Anion Gap BUN Creatinine Creat Clearance w eGFR POC Glucometer > 600 279 Random Glucose Calcium Total Bilirubin AST ALT Alkaline Phosphatase Total Protein Albumin Urine Color Straw Urine Appearance Clear Urine pH 6.0 Ur Specific [place] 1.038 H Urine Protein Negative Urine Glucose (UA) 3+ H Urine Ketones Negative Urine Blood Negative Urine Nitrite Negative Urine Bilirubin Negative Urine Urobilinogen Negative Ur Leukocyte Esterase 2+ H Urine WBC (Auto) 3 Urine RBC (Auto) 3 Ur Epithelial Cells Rare Calcium Oxalate Crystal Rare Urine Bacteria Rare Stool O & P Wet [place] RPR Titer O & P Permanent Slide 09/09/17 09/09/17 09/09/17 06:43 09:30 09:30 WBC 7.2 RBC 4.38 Hgb 13.7 Hct 41.6 MCV 94.9 MCH 31.2 MCHC 32.8 RDW 14.5 Plt Count 277 D MPV 8.8 D Sodium 133 L Potassium 3.9 Chloride 96 L Carbon Dioxide 31 Anion Gap 6 L BUN 14 Creatinine 0.6 Creat Clearance w eGFR > 60 POC Glucometer 84 Random Glucose 332 H* Calcium 8.8 Total Bilirubin 0.3 AST 25 ALT 48 Alkaline Phosphatase 133 H Total Protein 7.7 Albumin 3.5 Urine Color Urine Appearance Urine pH Ur Specific [place] Urine Protein Urine Glucose (UA) Urine Ketones Urine Blood Urine Nitrite Urine Bilirubin Urine Urobilinogen Ur Leukocyte Esterase Urine WBC (Auto) Urine RBC (Auto) Ur Epithelial Cells Calcium Oxalate Crystal Urine Bacteria Stool O & P [place] RPR Titer O & P Permanent Slide 09/09/17 09/09/17 09/09/17 09:30 11:44 16:46 WBC RBC Hgb Hct MCV MCH MCHC RDW Plt Count MPV Sodium Potassium Chloride Carbon Dioxide Anion Gap BUN Creatinine Creat Clearance w eGFR POC Glucometer 417 369 Random Glucose Calcium Total Bilirubin AST ALT Alkaline Phosphatase Total Protein Albumin Urine Color Urine Appearance Urine pH Ur Specific [place] Urine Protein Urine Glucose (UA) Urine Ketones Urine Blood Urine Nitrite Urine Bilirubin Urine Urobilinogen Ur Leukocyte Esterase Urine WBC (Auto) Urine RBC (Auto) Ur Epithelial Cells Calcium Oxalate Crystal Urine Bacteria Stool O & P [place] RPR Titer Nonreactive O & P Permanent Slide 09/09/17 09/10/17 09/10/17 21:17 06:21 12:00 WBC RBC Hgb Hct MCV MCH MCHC RDW Plt Count MPV Sodium Potassium Chloride Carbon Dioxide Anion Gap BUN Creatinine Creat Clearance w eGFR POC Glucometer 516 317 545 Random Glucose Calcium Total Bilirubin AST ALT Alkaline Phosphatase Total Protein Albumin Urine Color Urine Appearance Urine pH Ur Specific [place] Urine Protein Urine Glucose (UA) Urine Ketones Urine Blood Urine Nitrite Urine Bilirubin Urine Urobilinogen Ur Leukocyte Esterase Urine WBC (Auto) Urine RBC (Auto) Ur Epithelial Cells Calcium Oxalate Crystal Urine Bacteria Stool O & P [place] RPR Titer O & P Permanent Slide 09/10/17 09/10/17 09/10/17 14:39 16:54 21:45 WBC RBC Hgb Hct MCV MCH MCHC RDW Plt Count MPV Sodium Potassium Chloride Carbon Dioxide Anion Gap BUN Creatinine Creat Clearance w eGFR POC Glucometer 387 432 Random Glucose Calcium Total Bilirubin AST ALT Alkaline Phosphatase Total Protein Albumin Urine Color Yellow Urine Appearance Slcloudy Urine pH 6.0 Ur Specific [place] 1.026 Urine Protein 1+ H Urine Glucose (UA) 3+ H Urine Ketones Negative Urine Blood 3+ H Urine Nitrite Negative Urine Bilirubin Negative Urine Urobilinogen Negative Ur Leukocyte Esterase Negative Urine WBC (Auto) 66 Urine RBC (Auto) 306 Ur Epithelial Cells Rare Calcium Oxalate Crystal Few Urine Bacteria Stool O & P [place] RPR Titer O & P Permanent Slide 09/11/17 09/11/17 09/11/17 06:38 11:50 17:14 WBC RBC Hgb Hct MCV MCH MCHC RDW Plt Count MPV Sodium Potassium Chloride Carbon Dioxide Anion Gap BUN Creatinine Creat Clearance w eGFR POC Glucometer 85 451 301 Random Glucose Calcium Total Bilirubin AST ALT Alkaline Phosphatase Total Protein Albumin Urine Color Urine Appearance Urine pH Ur Specific [place] Urine Protein Urine Glucose (UA) Urine Ketones Urine Blood Urine Nitrite Urine Bilirubin Urine Urobilinogen Ur Leukocyte Esterase Urine WBC (Auto) Urine RBC (Auto) Ur Epithelial Cells Calcium Oxalate Crystal Urine Bacteria Stool O & P [place] RPR Titer O & P Permanent Slide 09/11/17 09/12/17 09/12/17 21:28 06:35 12:01 WBC RBC Hgb Hct MCV MCH MCHC RDW Plt Count MPV Sodium Potassium Chloride Carbon Dioxide Anion Gap BUN Creatinine Creat Clearance w eGFR POC Glucometer 335 87 340 Random Glucose Calcium Total Bilirubin AST ALT Alkaline Phosphatase Total Protein Albumin Urine Color Urine Appearance Urine pH Ur Specific [place] Urine Protein Urine Glucose (UA) Urine Ketones Urine Blood Urine Nitrite Urine Bilirubin Urine Urobilinogen Ur Leukocyte Esterase Urine WBC (Auto) Urine RBC (Auto) Ur Epithelial Cells Calcium Oxalate Crystal Urine Bacteria Stool O & P [place] RPR Titer O & P Permanent Slide 09/12/17 09/12/17 09/13/17 17:20 21:39 06:37 WBC RBC Hgb Hct MCV MCH MCHC RDW Plt Count MPV Sodium Potassium Chloride Carbon Dioxide Anion Gap BUN Creatinine Creat Clearance w eGFR POC Glucometer 335 257 66 Random Glucose Calcium Total Bilirubin AST ALT Alkaline Phosphatase Total Protein Albumin Urine Color Urine Appearance Urine pH Ur Specific [place] Urine Protein Urine Glucose (UA) Urine Ketones Urine Blood Urine Nitrite Urine Bilirubin Urine Urobilinogen Ur Leukocyte Esterase Urine WBC (Auto) Urine RBC (Auto) Ur Epithelial Cells Calcium Oxalate Crystal Urine Bacteria Stool O & P [place] RPR Titer O & P Permanent Slide 09/13/17 09/13/17 09/13/17 12:02 17:21 21:27 WBC RBC Hgb Hct MCV MCH MCHC RDW Plt Count MPV Sodium Potassium Chloride Carbon Dioxide Anion Gap BUN Creatinine Creat Clearance w eGFR POC Glucometer 390 397 138 Random Glucose Calcium Total Bilirubin AST ALT Alkaline Phosphatase Total Protein Albumin Urine Color Urine Appearance Urine pH Ur Specific [place] Urine Protein Urine Glucose (UA) Urine Ketones Urine Blood Urine Nitrite Urine Bilirubin Urine Urobilinogen Ur Leukocyte Esterase Urine WBC (Auto) Urine RBC (Auto) Ur Epithelial Cells Calcium Oxalate Crystal Urine Bacteria Stool O & P [place] RPR Titer O & P Permanent Slide 09/14/17 09/14/17 09/14/17 06:42 11:20 16:42 WBC RBC Hgb Hct MCV MCH MCHC RDW Plt Count MPV Sodium Potassium Chloride Carbon Dioxide Anion Gap BUN Creatinine Creat Clearance w eGFR POC Glucometer 327 134 461 Random Glucose Calcium Total Bilirubin AST ALT Alkaline Phosphatase Total Protein Albumin Urine Color Urine Appearance Urine pH Ur Specific [place] Urine Protein Urine Glucose (UA) Urine Ketones Urine Blood Urine Nitrite Urine Bilirubin Urine Urobilinogen Ur Leukocyte Esterase Urine WBC (Auto) Urine RBC (Auto) Ur Epithelial Cells Calcium Oxalate [place] Urine Bacteria Stool O & P [place] RPR Titer O & P Permanent Slide 09/14/17 09/15/17 09/15/17 21:23 00:15 06:10 WBC RBC Hgb Hct MCV MCH MCHC RDW Plt Count MPV Sodium Potassium Chloride Carbon Dioxide Anion Gap BUN Creatinine Creat Clearance w eGFR POC Glucometer 191 287 343 Random Glucose Calcium Total Bilirubin AST ALT Alkaline Phosphatase Total Protein Albumin Urine Color Urine Appearance Urine pH Ur Specific [place] Urine Protein Urine Glucose (UA) Urine Ketones Urine Blood Urine Nitrite Urine Bilirubin Urine Urobilinogen Ur Leukocyte Esterase Urine WBC (Auto) Urine RBC (Auto) Ur Epithelial Cells Calcium Oxalate [place] Urine Bacteria Stool O & P [place] RPR Titer O & P Permanent Slide 09/15/17 09/15/17 09/15/17 11:53 17:15 21:32 WBC RBC Hgb Hct MCV MCH MCHC RDW Plt Count MPV Sodium Potassium Chloride Carbon Dioxide Anion Gap BUN Creatinine Creat Clearance w eGFR POC Glucometer 186 268 311 Random Glucose Calcium Total Bilirubin AST ALT Alkaline Phosphatase Total Protein Albumin Urine Color Urine Appearance Urine pH Ur Specific [place] Urine Protein Urine Glucose (UA) Urine Ketones Urine Blood Urine Nitrite Urine Bilirubin Urine Urobilinogen Ur Leukocyte Esterase Urine WBC (Auto) Urine RBC (Auto) Ur Epithelial Cells Calcium Oxalate [place] Urine Bacteria Stool O & P [place] RPR Titer O & P Permanent Slide 09/16/17 09/16/17 09/16/17 06:39 11:53 17:00 WBC RBC Hgb Hct MCV MCH MCHC RDW Plt Count MPV Sodium Potassium Chloride Carbon Dioxide Anion Gap BUN Creatinine Creat Clearance w eGFR POC Glucometer 65 405 Random Glucose Calcium Total Bilirubin AST ALT Alkaline Phosphatase Total Protein Albumin Urine Color Urine Appearance Urine pH Ur Specific [place] Urine Protein Urine Glucose (UA) Urine Ketones Urine Blood Urine Nitrite Urine Bilirubin Urine Urobilinogen Ur Leukocyte Esterase Urine WBC (Auto) Urine RBC (Auto) Ur Epithelial Cells Calcium Oxalate Crystal Urine Bacteria Stool O & P [place] RPR Titer O & P Permanent Slide Cancelled 09/16/17 09/16/17 09/17/17 17:16 21:30 04:08 WBC RBC Hgb Hct MCV MCH MCHC RDW Plt Count MPV Sodium Potassium Chloride Carbon Dioxide Anion Gap BUN Creatinine Creat Clearance w eGFR POC Glucometer 319 264 58 Random Glucose Calcium Total Bilirubin AST ALT Alkaline Phosphatase Total Protein Albumin Urine Color Urine Appearance Urine pH Ur Specific [place] Urine Protein Urine Glucose (UA) Urine Ketones Urine Blood Urine Nitrite Urine Bilirubin Urine Urobilinogen Ur Leukocyte Esterase Urine WBC (Auto) Urine RBC (Auto) Ur Epithelial Cells Calcium Oxalate [place] Urine Bacteria Stool O & P [place] RPR Titer O & P Permanent Slide 09/17/17 09/17/17 09/17/17 06:24 12:27 17:07 WBC RBC Hgb Hct MCV MCH MCHC RDW Plt Count MPV Sodium Potassium Chloride Carbon Dioxide Anion Gap BUN Creatinine Creat Clearance w eGFR POC Glucometer 268 181 144 Random Glucose Calcium Total Bilirubin AST ALT Alkaline Phosphatase Total Protein Albumin Urine Color Urine Appearance Urine pH Ur Specific [place] Urine Protein Urine Glucose (UA) Urine Ketones Urine Blood Urine Nitrite Urine Bilirubin Urine Urobilinogen Ur Leukocyte Esterase Urine WBC (Auto) Urine RBC (Auto) Ur Epithelial Cells Calcium Oxalate [place] Urine Bacteria Stool O & P [place] RPR Titer O & P Permanent Slide 09/17/17 09/18/17 21:31 06:24 WBC RBC Hgb Hct MCV MCH MCHC RDW Plt Count MPV Sodium Potassium Chloride Carbon Dioxide Anion Gap BUN Creatinine Creat Clearance w eGFR POC Glucometer 313 63 Random Glucose Calcium Total Bilirubin AST ALT Alkaline Phosphatase Total Protein Albumin Urine Color Urine Appearance Urine pH Ur Specific [place] Urine Protein Urine Glucose (UA) Urine Ketones Urine Blood Urine Nitrite Urine Bilirubin Urine Urobilinogen Ur Leukocyte Esterase Urine WBC (Auto) Urine RBC (Auto) Ur Epithelial Cells Calcium Oxalate [place] Urine Bacteria Stool O & P [place] RPR Titer O & P Permanent Slide glucose controlled, no wbc 09/18/17 12:04 swelling and erytema, no heat left knee no imporvmenet noted Assessment: 09/18/17 12:04 r/o gouty arhritis - xary in am, change antibiotis to augmentin, indomethacin bid for pain. may need transfer to ed for evaluation and tap if no imporvement, opatient and nursing made aware
[2017-09-18] MEDS: INDOMETHACIN 50 MG CAPSULE PO SCH ×2 (14:21→22:25)
[2017-09-18] MEDS ORDERED: PT OWN MED DRAWER 7, Y5N ONE ×2 (14:24→23:45)
[2017-09-18] MEDS ORDERED: AMOX TR/POT CLAV 875MG/125MG TABLETS (FP) PO SCH (17:30)
[2017-09-18] MEDS: QUEtiapine FUMARATE 50 MG TABLET PO SCH (21:30)
[2017-09-18] MEDS: THIAMINE HCL 100 MG TABLET (FP) PO SCH (21:30)
[2017-09-18] MEDS ORDERED: INSULIN DETEMIR 100 UNITS/ML MDV SQ ONE (23:01)
[2017-09-19] MEDS ORDERED: METHADONE HCL 10 MG TABLET ONE (03:08)
[2017-09-19] MEDS ORDERED: METHADONE HCL 40 MG DISPERSABLE TABLET ONE (03:08)
[2017-09-19] MEDS: METHADONE 120 MG, METHADONE 10 MG PO SCH (06:30)
[2017-09-19] MEDS: INSULIN SLIDING SCALE (NOVOLOG) 1 VIAL SQ SCH ×3 (06:55→17:05)
[2017-09-19] MEDS: INSULIN DETEMIR 100 UNITS/ML MDV SQ SCH ×2 (06:55→21:17)
[2017-09-19] MEDS: metFORMIN HCL 500 MG TABLET (FP) PO SCH ×2 (08:00→17:03)
[2017-09-19] MEDS: PANTOPRAZOLE 40 MG TABLET (FP) PO SCH (09:22)
[2017-09-19] MEDS: PRENATAL VITAMINS W/ FOLIC ACID TABLET (FP) PO SCH (09:22)
[2017-09-19] MEDS: BACITRACIN 0.9 GM PACKET TP SCH ×2 (09:22→21:17)
[2017-09-19] MEDS ORDERED: PT OWN MED DRAWER 7, Y5N ONE ×2 (09:24→10:44)
[2017-09-19] MEDS: NICOTINE 14 MG/24 HOURS TOPICAL PATCH TD SCH (09:24)
[2017-09-19] MEDS: INDOMETHACIN 50 MG CAPSULE PO SCH ×2 (09:24→21:16)
[2017-09-19] MEDS ORDERED: INSULIN (NOVOLOG) ASPART 100 UNITS/ML 10ML VIAL ONE ×2 (12:04→17:05)
[2017-09-19] MEDS: QUEtiapine FUMARATE 50 MG TABLET PO SCH (21:16)
[2017-09-19] MEDS: THIAMINE HCL 100 MG TABLET (FP) PO SCH (21:16)
[2017-09-20] MEDS ORDERED: METHADONE HCL 10 MG TABLET ONE (04:34)
[2017-09-20] MEDS ORDERED: METHADONE HCL 40 MG DISPERSABLE TABLET ONE (04:35)
[2017-09-20] MEDS: METHADONE 120 MG, METHADONE 10 MG PO SCH (06:23)
[2017-09-20] MEDS: metFORMIN HCL 500 MG TABLET (FP) PO SCH ×2 (06:25→16:59)
[2017-09-20] MEDS ORDERED: INSULIN (NOVOLOG) ASPART 100 UNITS/ML 10ML VIAL ONE ×3 (07:21→16:58)
[2017-09-20] MEDS: INSULIN DETEMIR 100 UNITS/ML MDV SQ SCH ×2 (07:51→21:03)
[2017-09-20] MEDS: INSULIN SLIDING SCALE (NOVOLOG) 1 VIAL SQ SCH ×3 (07:52→16:59)
[2017-09-20] MEDS: BACITRACIN 0.9 GM PACKET TP SCH ×2 (09:59→21:03)
[2017-09-20] MEDS: INDOMETHACIN 50 MG CAPSULE PO SCH ×2 (09:59→21:03)
[2017-09-20] MEDS: PRENATAL VITAMINS W/ FOLIC ACID TABLET (FP) PO SCH (10:00)
[2017-09-20] MEDS: NICOTINE 14 MG/24 HOURS TOPICAL PATCH TD SCH (10:00)
[2017-09-20] MEDS: PANTOPRAZOLE 40 MG TABLET (FP) PO SCH (10:00)
[2017-09-20] MEDS ORDERED: PT OWN MED DRAWER 7, Y5N ONE (11:57)
[2017-09-20] MEDS: THIAMINE HCL 100 MG TABLET (FP) PO SCH (21:03)
[2017-09-20] MEDS: QUEtiapine FUMARATE 50 MG TABLET PO SCH (21:03)
[2017-09-21] MEDS ORDERED: METHADONE HCL 10 MG TABLET ONE (03:18)
[2017-09-21] MEDS ORDERED: METHADONE HCL 40 MG DISPERSABLE TABLET ONE (03:19)
[2017-09-21] MEDS: METHADONE 120 MG, METHADONE 10 MG PO SCH (06:30)
[2017-09-21] MEDS: metFORMIN HCL 500 MG TABLET (FP) PO SCH (06:35)
[2017-09-21] MEDS: INSULIN DETEMIR 100 UNITS/ML MDV SQ SCH (06:35)
[2017-09-21 07:13] VITALS: BP 116/83; PULSE 96; TEMP 97.5
[2017-09-21] MEDS: INSULIN SLIDING SCALE (NOVOLOG) 1 VIAL SQ SCH (07:50)
[2017-09-21] MEDS ORDERED: INSULIN (NOVOLOG) ASPART 100 UNITS/ML 10ML VIAL ONE (07:51)
[2017-09-21] MEDS: INDOMETHACIN 50 MG CAPSULE PO SCH (09:05)
[2017-09-21] MEDS: PRENATAL VITAMINS W/ FOLIC ACID TABLET (FP) PO SCH (09:05)
[2017-09-21] MEDS: PANTOPRAZOLE 40 MG TABLET (FP) PO SCH (09:05)
[2017-09-21] MEDS: BACITRACIN 0.9 GM PACKET TP SCH (09:05)
[2017-09-21] MEDS: NICOTINE 14 MG/24 HOURS TOPICAL PATCH TD SCH (09:06)
--- NOTE | 2017-09-21 09:26 | PN ---
Psychiatric Progress Note Vital Signs: Vital Signs Period Temp Pulse Resp BP Sys/Jeronimo Pulse Ox Last 24 Hr 97.5 F 96 16-18 116/83 Date of Session: 09/20/17 Chief Complaint:: Discharge visit. HPI: Patient addressed Cocaine and Opioid dependence comorbid with Substance induced mood disorder. ROS: Significant for IDDM. Current Medications: Active Medications Generic Name Dose Route Start Last Admin Trade Name Freq PRN Reason Stop Dose Admin Acetaminophen 650 mg 09/08/17 17:14 09/15/17 15:39 Tylenol - PO 650 mg Q4H PRN Administration FEVER Al Hydroxide/Mg Hydroxide 30 ml 09/08/17 17:14 Mylanta Oral Suspension - PO Q6H PRN DYSPEPSIA Bacitracin 0.9 gm 09/11/17 22:00 09/21/17 09:05 Bacitracin - TP Not Given BID [facility] Bismuth Subsalicylate 30 ml 09/18/17 07:33 Pepto-Bismol Liquid - PO 09/25/17 07:32 Q6H PRN DIARRHEA Eucalyptus/Menthol/Phenol/Sorbitol 1 each 09/08/17 17:14 Cepastat Lozenge - MM Q4H PRN SORE THROAT Guaifenesin 10 ml 09/08/17 17:14 Robitussin Dm - PO Q6H PRN COUGH Hydroxyzine Pamoate 50 mg 09/08/17 17:14 Vistaril - PO Q4H PRN AGITATION Indomethacin 50 mg 09/18/17 12:00 09/21/17 09:05 Indocin - PO 50 mg BID [facility] Administration Insulin Aspart 1 vial 09/10/17 12:45 09/21/17 07:50 Novolog Vial Sliding Scale - SQ 8 units TIDAC [facility] Administration Protocol Insulin Detemir 10 units 09/11/17 07:00 09/21/17 06:35 Levemir Vial SQ 10 units DAILY@0700 [facility] Administration Insulin Detemir 20 units 09/18/17 22:00 09/20/17 21:03 Levemir Vial SQ 20 units HS [facility] Administration Magnesium Citrate 300 ml 09/08/17 17:14 Citroma - PO Q48H PRN CONSTIPATION Magnesium Hydroxide 30 ml 09/08/17 17:14 Milk Of Magnesia - PO DAILY PRN CONSTIPATION Metformin HCl 500 mg 09/11/17 16:30 09/21/17 06:35 Glucophage - PO 500 mg BID@0700,1630 [facility] Administration Methadone HCl 120 mg/ 130 mg 09/09/17 08:15 09/21/17 06:30 Methadone HCl 10 mg PO 130 mg DAILY@0600 MARVIN Administration Nicotine 14 mg 09/09/17 10:00 09/21/17 09:06 Nicoderm Patch - TD Not Given DAILY MARVIN Nicotine Polacrilex 2 mg 09/08/17 17:14 Nicorette Gum - BC Q2H PRN NICOTINE REPLACEMENT RX Pantoprazole Sodium 40 mg 09/15/17 15:30 09/21/17 09:05 Protonix - PO 40 mg DAILY MARVIN Administration Multivit/Folic Acid/Iron 1 tab 09/09/17 10:00 09/21/17 09:05 Vitamins (Sjr) - PO 1 tab DAILY MARVIN Administration Pseudoephedrine/Triprolidine 1 combo 09/08/17 17:14 Actifed - PO TID PRN NASAL CONGESTION Quetiapine Fumarate 50 mg 09/09/17 22:00 09/20/17 21:03 Seroquel - PO 50 mg HS MARVIN Administration Thiamine HCl 100 mg 09/08/17 22:00 09/20/17 21:03 Vitamin B1 - PO 100 mg HS MARVIN Administration Current Side Effect: No Lab tests ordered: No Lab tests reviewed: Yes Provider note:: Patient will complete this program tomorrow 09/21/17.She has met her treatment goals and will continue to address her issues on outpatient basis .Patient reports finding that Seroquel 50 mg po hs helps to cope with mood instability,anxiety,sleeping difficulties.script for 30 days supply provided. Supportive therapy provided focusing on relapse prevention.Support sytem,coping skills utlizations has been discussed with the patient as well as other resourses to maintain recovery. Patient is stable for discharge tomorrow 09/21/17. Total face to face time:: 25 Mental Status Exam - Mental Status Exam Alert and Oriented to: Time, Place, Person Cognitive Function: Grossly Intact Patient Appearance: Well Groomed Mood: Hopeful, Euthymic Affect: Mood Congruent Speech Pattern: Clear Voice Loudness: Normal Thought Process: Goal Oriented Thought Disorder: Not Present Hallucinations: Denies Suicidal Ideation: Denies Homicidal Ideation: Denies Insight/Judgement: Fair Sleep: Fair Appetite: Good Muscle strength/Tone: Normal Gait/Station: Normal Psychiatric Treatment Plan - Problem List (1) Cocaine dependence Current Visit: Yes (2) IDDM (insulin dependent diabetes mellitus) Current Visit: Yes (3) Nicotine dependence Current Visit: Yes (4) Opioid dependence on agonist therapy Current Visit: Yes (5) Substance induced mood disorder Current Visit: Yes
--- NOTE | 2017-09-21 09:36 | PN ---
[facility] Progress Note Note: received nurse called that the patient is leaving the rehab facility today home med refilled is needed resume with prescription as per ambulatory orders sent
== END 2017-09-21 10:05 | disposition home or self-care (01) | DRG 772 ==
LOC: YASAS 12:24 → Y3E 17:46
PROVIDERS: ADMIT Psychiatry & Neurology Psychiatry; ATTEND Psychiatry & Neurology Psychiatry
PROC: HZ42ZZZ Group Counseling for Substance Abuse Treatment, Cognitive-Behavioral (ICD-10-PCS; principal; 2017-09-08)
DX: F11.20 Opioid dependence, uncomplicated (principal); F14.20 Cocaine dependence, uncomplicated; F17.210 Nicotine dependence, cigarettes, uncomplicated; F32.9 Major depressive disorder, single episode, unspecified; F19.24 Other psychoactive substance dependence with psychoactive substance-induced mood disorder; E11.9 Type 2 diabetes mellitus without complications; Z79.4 Long term (current) use of insulin; R19.7 Diarrhea, unspecified; B18.2 Chronic viral hepatitis C; R63.4 Abnormal weight loss; Z68.1 Body mass index [BMI] 19.9 or less, adult; Z59.0 Homelessness
CPT/HCPCS: 36415; 73560-TC-LT-FY; 80053; 81003; 81015; 82962; 85027; 86593; 87177; 87209; 93005; 93010